=== PATIENT | female | born 1990 | race Caucasian/White ===

== ENCOUNTER 2016-06-25 14:46 | Outpatient (CLI) | payer OTHER ==
[2016-06-25 16:08] LABS: APPEARANCE,URINE CLOUDY; BILIRUBIN,URINE SMALL (NEGATIVE); GLUCOSE, URINE NEGATIVE (NEGATIVE); KETONES,URINE TRACE mg/dL (NEGATIVE); LEUKOCYTE ESTERASE,URINE MODERATE (NEGATIVE); NITRITE,URINE NEGATIVE (NEGATIVE); PROTEIN,URINE 100 mg/dL (NEGATIVE)
--- NOTE | 2016-06-25 16:10 | Non Stress Test Report ---
Non Stress Test Datetime Report Generated by CPN: 06/25/2016 16:09 DEMOGRAPHIC EGA NST: 35.5 INDICATION Indication for Study: Diabetes Mellitus MONITORING Monitor Explained: Monitor Explained; Test Explained; Patient Verbalized Understanding Time on Monitor: 06/25/2016 14:57 Time off Monitor: 06/25/2016 15:25 NST Duration: 28 NST INTERVENTIONS NST Interventions: PO Hydration Physician Notified NST: A. Emmel CNM BABY A: [id number] BABY A Movement : Present Contraction Frequency : 0 FHR Baseline : 135 Accelerations : 15X15 Decelerations : None Variability : Moderate 6-25bpm NST Review: Meets Criteria for Reactive NST NST Review and Verified By : MOSES Becerra Results: Reactive NST REPORT Report Trigger: Send Report
[2016-06-25 16:18] LABS: URINE BARBITURATES SCREEN NEGATIVE; URINE METHADONE SCREEN NEGATIVE; URINE OPIATES LOW NEGATIVE; URINE PHENCYCLIDINE SCREEN NEGATIVE
== END 2016-06-25 17:20 | disposition home or self-care (01) ==
LOC: LC 14:46
PROVIDERS: ATTEND Obstetrics & Gynecology
PROC: 4A1HXCZ Monitoring of Products of Conception, Cardiac Rate, External Approach (ICD-10-PCS; principal; 2016-06-25)
DX: O24.419 Gestational diabetes mellitus in pregnancy, unspecified control (principal); O99.283 Endocrine, nutritional and metabolic diseases complicating pregnancy, third trimester; E86.0 Dehydration; Z3A.35 35 weeks gestation of pregnancy
CPT/HCPCS: 59025; 80307; 81001; 87086; 87088; 87186

== ENCOUNTER 2016-07-26 06:22 | Inpatient (IN) | payer OTHER ==
[2016-07-26] MEDS ORDERED: RINGERS SOLUTION,LACTATED 1,000 ML IV PRN (06:34)
[2016-07-26] MEDS ORDERED: RINGERS SOLUTION,LACTATED 300 ML IV ONE (06:34)
[2016-07-26] MEDS ORDERED: OXYTOCIN/NORMAL SALINE 1,000 ML IV PRN ×2 (06:34→17:14)
[2016-07-26 07:07] LABS: ABSOLUTE BASOPHILS # (AUTO) 0.1 10^3/uL (0.0-0.2); ABSOLUTE EOSINOPHILS # (AUTO) 0.2 10^3/uL (0.0-0.6); ABSOLUTE LYMPHOCYTES (AUTO) 3.7 10^3/uL (0.5-4.7); ABSOLUTE MONOCYTES (AUTO) 1.1 10^3/uL (0.1-1.4); ABSOLUTE NEUT (AUTO) 9.7 10^3/uL (1.7-8.2); BASOPHILS % (AUTO) 0.6 % (0-2); EOSINOPHILS % (AUTO) 1.5 % (0-6); HEMATOCRIT 33.5 % (36.0-47.0); HEMOGLOBIN 11.6 g/dL (12.0-15.5); HGB HCT DIFFERENCE 1.3; MEAN CORPUSCULAR HEMOGLOBIN 31.9 pg (27.0-33.4); MEAN CORPUSCULAR HGB CONC 34.7 g/dL (32.0-36.0); MEAN CORPUSCULAR VOLUME 92 fl (80-97); MONOCYTES % (AUTO) 7.5 % (3-13); RED BLOOD COUNT 3.65 10^6/uL (3.72-5.28); RED CELL DISTRIBUTION WIDTH 13.7 % (11.5-14.0); SEGMENTED NEUTROPHILS % (AUTO) 65.4 % (42-78); WHITE BLOOD COUNT 14.9 10^3/uL (4.0-10.5)
[2016-07-26 07:25] LABS: APPEARANCE,URINE CLOUDY; BILIRUBIN,URINE NEGATIVE (NEGATIVE); GLUCOSE, URINE 50 mg/dL (NEGATIVE); KETONES,URINE TRACE mg/dL (NEGATIVE); LEUKOCYTE ESTERASE,URINE LARGE (NEGATIVE); NITRITE,URINE NEGATIVE (NEGATIVE); PROTEIN,URINE 30 mg/dL (NEGATIVE); URINE SPECIFIC GRAVITY 1.033; UROBILINOGEN,URINE NEGATIVE mg/dL (<2.0)
[2016-07-26 07:28] LABS: URINE BARBITURATES SCREEN NEGATIVE; URINE METHADONE SCREEN NEGATIVE; URINE OPIATES LOW NEGATIVE; URINE PHENCYCLIDINE SCREEN NEGATIVE
[2016-07-26] MEDS ORDERED: OXYTOCIN/NORMAL SALINE 20 UNIT/1,000 ML RTUINJ ONE (07:40)
--- NOTE | 2016-07-26 08:01 | L&D Flow Sheet ---
LD Flowsheet Datetime Report Generated by CPN: 07/26/2016 08:00 Datetime: 07/26/2016 07:48 Vital Signs NBP Sys/Kristin/Mean (mmHg): 110 (QS system process) : 60 (QS system process) : 79 (QS system process) Pulse: 78 (QS system process) Datetime: 07/26/2016 07:45 Medications Pitocin (milliunit): Pitocin Started (milliunits) @ 2 (Angela Broman, RN) Datetime: 07/26/2016 07:31 Vaginal Exam Dilatation (cm): 1.0 (Angela Broman, RN) Effacement (%): 25 (Angela Broman, RN) Station: -2 (Angela Broman, RN) Exam by: Faustino Self RN (Angela Broman, RN) Datetime: 07/26/2016 07:30 Uterine Activity Monitor Mode: External (Angela Broman, RN) Monitor Interventions for UA: Darwin Adjusted (Angela Broman, RN) Frequency (min): irregular (Angela Broman, RN) Quality: Mild (Angela Broman, RN) Duration Criteria: Less than Two 120 Second Contractions (Angela Broman, RN) Resting Tone (Palpate): Relaxed (Angela Broman, RN) Assessment A Monitor Mode: External US (Angela Broman, RN) FHR Baseline Rate : 130 (Angela Broman, RN) Variability: Moderate 6-25 bpm (Angela Broman, RN) Accelerations: 15X15 (Angela Broman, RN) Decelerations: None (Angela Broman, RN) Datetime: 07/26/2016 07:20 Maternal Assessment Level of Consciousness: Fully Conscious (Angela Broman, RN) DTR's/Clonus: DTRs 2+; No Clonus (Angela Broman, RN) Headache: Denies (Angela Broman, RN) Breath Sounds, Right: Clear and Equal (Angela Broman, RN) Nausea/Vomiting: Denies (Angela Broman, RN) RUQ Epigastric Pain: Denies (Angela Broman, RN) Patient Care Comments: Pt up to BR to void (Angela Broman, RN) Datetime: 07/26/2016 07:18 Bedside Blood Glucose: 122 H (QS system process) Datetime: 07/26/2016 07:12 Communication Communication Comments: Report received from Merly RN (Angela Broman, RN) Datetime: 07/26/2016 07:00 Uterine Activity Monitor Mode: External (Crystal Venus, RN) Frequency (min): 4-7 (Crystal Venus, RN) Quality: Mild (Crystal Meghan, RN) Duration (sec): 60-90 (Crystal Venus, RN) Duration Criteria: Less than Two 120 Second Contractions (Crystal Meghan, RN) Resting Tone (Palpate): Relaxed (Crystal Venus, RN) Assessment A Monitor Mode: External US (Crystal Meghan, RN) FHR Baseline Rate : 130 (Crystal Meghan, RN) Variability: Moderate 6-25 bpm (Crystal Venus, RN) Accelerations: 15X15 (Crystal Meghan, RN) Datetime: 07/26/2016 06:56 Procedures: Consents Signed (Carlene Redding, RN) Datetime: 07/26/2016 06:43 Patient Care IV/Blood Work: IV Started; IV Bolus Started; Labs Drawn with IV Start (Carlene Redding RN) Patient Care Comments: 18 gauge placed in R wrist on first attempt. Pt tolerated well. (Carlene Redding, RN) Datetime: 07/26/2016 06:42 Pain Pain Scale: 0 (Carlene Redding, RN) Pain Presence: None/Denies (Carlene Redding, RN) Pain Type: N/A (Carlene Redding, RN) Vaginal Bleeding: None (Carlene Redding, RN) Maternal Assessment Level of Consciousness: Fully Conscious (Carlene Redding, RN) DTR's/Clonus: DTRs 2+; No Clonus (Carlene Redding, RN) Headache: Denies (Carlene Redding, RN) Breath Sounds, Left: Clear and Equal (Carlene Redding, RN) Breath Sounds, Right: Clear and Equal (Carlene Redding, RN) Nausea/Vomiting: Denies (Carlene Redding, RN) RUQ Epigastric Pain: Denies (Carlene Redding, RN) Datetime: 07/26/2016 06:37 Vital Signs NBP Sys/Kristin/Mean (mmHg): 121 (QS system process) : 59 (QS system process) : 85 (QS system process) Pulse: 82 (QS system process)
[2016-07-26] MEDS ORDERED: EPHEDRINE SULFATE INJ 50 MG/1 ML AMPULE ONE (11:08)
[2016-07-26] MEDS ORDERED: BUPIVACAINE HCL 0.25 % INJ/PF (2.5 MG/1 ML) 30 ML VIAL ONE (11:08)
[2016-07-26] MEDS ORDERED: FENTANYL/BUPIVACAINE/NS/PF 200 MCG/100 ML RTUINJ EPI ONE (11:08)
[2016-07-26] MEDS ORDERED: MISOPROSTOL 0.2 MG TABLET ONE (11:09)
--- NOTE | 2016-07-26 15:56 | L&D Progress Notes ---
PROGRESS NOTES Datetime Report Generated by CPN: 07/26/2016 15:56 PROGRESS NOTE Impression: Normal Progression of Labor Procedures: Sterile Vag Exam Plan: Continue Present Management Informed Consent Obtained: Vaginal Delivery Vital Signs : Reviewed; Within Normal Limits Comment: pt feeling more pressure continue present mgmt anticipate VAGINAL EXAM Dilatation: 7 Dilatation: 1 Effacement: 80 Station: 0 Contractions: 2-3 Contractions: irregular MEMBRANES Membranes: Ruptured Membranes: Intact Amniotic Fluid Color: Clear FETUS A FHR - Baseline: 130 Variability: Moderate 6-25bpm Accelerations: 15X15 Decelerations: Early FHR Category: Category II Estimated Weight (gm): 3400 Presentation: Vertex SIGNATURE SIGNATURE: [id number] SIGNATURE: [id number] Assignment: Ramya Lott MD Signature: with User ID: [email or web address] : with User ID: [email or web address]
[2016-07-26] MEDS ORDERED: MEASLES,MUMPS&RUBELLA VACC/PF 0.5 ML VIAL SUBCUT PRN (17:14)
[2016-07-26] MEDS ORDERED: BENZOCAINE/MENTHOL AEROSOL SPRAY 56 ML TOP PRN (17:14)
[2016-07-26] MEDS ORDERED: PROMETHAZINE HCL 25 MG TABLET PO PRN (17:14)
[2016-07-26] MEDS ORDERED: ACETAMINOPHEN 650 MG SUPP.RECT PR PRN (17:14)
[2016-07-26] MEDS ORDERED: DIBUCAINE 1% OINTMENT 28 GM TP PRN (17:14)
[2016-07-26] MEDS ORDERED: PROMETHAZINE HCL INJ 25 MG/1 ML VIAL IV PRN (17:14)
[2016-07-26] MEDS ORDERED: ACETAMINOPHEN WITH CODEINE #3 TABLET PO PRN ×2 (17:14)
[2016-07-26] MEDS ORDERED: DIPH/PERTUSS(ACELL)/TETANUS VAC/PF 0.5 ML SYR (>=10YO) IM PRN (17:14)
[2016-07-26] MEDS ORDERED: NA PHOS,M-B/NA PHOS,DI-BA (ADULT) 133 ML ENEMA PR PRN (17:14)
[2016-07-26] MEDS ORDERED: PSEUDOEPHEDRINE HCL 30 MG TABLET PO PRN (17:14)
[2016-07-26] MEDS ORDERED: DIPHENHYDRAMINE HCL 25 MG CAPSULE PO PRN (17:14)
[2016-07-26] MEDS ORDERED: PROMETHAZINE HCL 25 MG SUPP.RECT PR PRN (17:14)
[2016-07-26] MEDS ORDERED: MAGNESIUM HYDROXIDE SUSP 30 ML UDCUP PO PRN (17:14)
[2016-07-26] MEDS ORDERED: ZOLPIDEM TARTRATE 5 MG TABLET PO PRN (17:14)
[2016-07-26] MEDS ORDERED: GLYCERIN/WITCH HAZEL LEAF 1 EACH MED..PAD TP PRN (17:14)
--- NOTE | 2016-07-26 18:02 | L&D General Admission ---
General Admit Datetime Report Generated by CPN: 07/26/2016 18:00 INFORMATION Patient Age: 25 (06/13/2016 09:57:QS system process) EDC: 07/25/2016 00:00 (06/25/2016 14:55:Belinda Reis RN) : 2 (06/25/2016 14:55:Belinda Reis RN) Para: 1 (06/25/2016 14:55:Belinda Reis RN) Term: 1 (06/25/2016 14:55:Carlene Redding RN) : 0 (06/25/2016 14:55:Carlene Redding RN) Spontaneous Abortions: 0 (06/25/2016 14:55:Carlene Redding RN) Induced Abortions: 0 (06/25/2016 14:55:Carlene Redding RN) Livin (06/25/2016 14:55:Carlene Redding RN) Cesareans: 0 (06/25/2016 14:55:Carlene Redding RN) VBACs: 0 (06/25/2016 14:55:Carlene Redding RN) Ectopic: 0 (06/25/2016 14:55:Carlene Redding RN) Multiple Births: 0 (06/25/2016 14:55:Carlene Redding RN) Baby, Number in Womb: 1 (06/25/2016 14:55:Carlene Redding RN) CARE Primary Active Directory Specialist: [facility] (06/25/2016 14:55:Belinda Reis RN) Adequate Care: Yes (06/25/2016 14:55:Carlene Redding RN) Height (in): 63 (07/26/2016 07:55:QS system process) ALLERGIES Medication Allergy: No (06/25/2016 14:55:Carlene Redding RN) Medication Allergies: No Known Allergies (07/26/2016) (07/26/2016 06:32:QS system process) Latex Allergy: No Latex Allergies (06/25/2016 14:55:Carlene Redding RN) Food Allergies: none (06/25/2016 14:55:Carlene Rdeding RN) Environmental Allergies: none (06/25/2016 14:55:Carlene Redding RN) COMMUNICATION Primary Language: Jamaican (06/25/2016 14:55:Belinda Reis RN) Medical Tx Preferred Language: Jamaican (06/25/2016 14:55:Carlene Redding RN) Communication Barrier(s): None (06/25/2016 14:55:Carlene Redding RN) DEMOGRAPHICS Address: [address] [place] [id number] (06/13/2016 09:57:QS system process) Zipcode: [address] (06/13/2016 09:57:QS system process) Home (06/13/2016 09:57:QS system process) SSN: [id number] (06/13/2016 09:57:QS system process) Next of Kin Name: MIGDALIA ESPINOSA (06/13/2016 09:57:QS system process) Next of Kin (06/13/2016 09:57:QS system process) Next of Kin Relationship: SPO (06/13/2016 09:57:QS system process) Date of : 1990 (06/13/2016 09:57:QS system process) Marital Status: (06/13/2016 09:57:QS system process) Sex: Female (06/13/2016 09:57:QS system process) Race: (06/13/2016 09:57:QS system process) Ethnicity: Non- or (06/13/2016 09:57:QS system process) Druze: None (06/13/2016 09:57:QS system process) DRUG AND ALCOHOL USE Alcohol: No (06/25/2016 14:55:Carlene Redding RN) Cigarettes: Never Smoker. [id number] (06/25/2016 14:55:Carlene Vahid RN) Marijuana: No (06/25/2016 14:55:Carlene Redding RN) Cocaine: No (06/25/2016 14:55:Carlene Vahdi RN) Other Illicit Drugs: No (06/25/2016 14:55:Carlene Redding, RN) VACCINE HISTORY Influenza Vaccine: No (06/25/2016 14:55:Carlene Redding RN) Pneumococcal Vaccine: No (06/25/2016 14:55:Carlene Redding RN) Tetanus Vaccine: No (06/25/2016 14:55:Carlene Redding RN) Tdap Vaccine: No (06/25/2016 14:55:Carlene Redding RN) Hepatitis B Vaccine: No (06/25/2016 14:55:Carlene Redding RN) Administrator Health Care Facility: [facility] (06/25/2016 14:55:Carlene Redding RN) Feeding Preference: Breast (06/25/2016 14:55:Carlene Redding RN) Benefit of Breast Feed Discussed: Yes (06/25/2016 14:55:Carlene Redding RN) Circumcision: N/A (06/25/2016 14:55:Carlene Redding RN) Classes Attended: No (06/25/2016 14:55:Carlene Redding RN) Tubal Ligation: Yes (06/25/2016 14:55:Carlene Redding RN) Tubal Authorization Signed: No (06/25/2016 14:55:Carlene Redding RN) Consent: N/A (06/25/2016 14:55:Carlene Redding RN) Consent Signed: N/A (06/25/2016 14:55:Carlene Redding RN) Pain Management Plans: Epidural (06/25/2016 14:55:Carlene Redding RN) Plans for Labor and Delivery: None (06/25/2016 14:55:Carlene Redding RN) Support Person: Migdalia (06/25/2016 14:55:Carlene Redding RN) Support Person Relationship: (06/25/2016 14:55:Carlene Redding RN) Cultural/Spritual Practice: No (06/25/2016 14:55:Carlene Redding RN) Spir/Cult Dietary Needs: No (06/25/2016 14:55:Carlene Redding RN) LIVING SITUATION/DISCHARGE PLAN Living Arrangements: House (06/25/2016 14:55:Carlene Redding RN) Adequate Access to:: Electric; Heat; Refrigeration; Plumbing/Running water; Phone; Transportation (06/25/2016 14:55:Carlene Redding RN) WIC Program: No (06/25/2016 14:55:Carlene Redding RN) Discharge Parer Person: Migdalia (06/25/2016 14:55:Carlene Redding RN) Person to Help after Discharge: Migdalia (06/25/2016 14:55:Carlene Redding RN) Currently Using Commun Resources: No (06/25/2016 14:55:Carlene Redding RN) Outside Agency/Plumbing Designer: No (06/25/2016 14:55:Carlene Redding RN) Car Seat for Discharge: Yes (06/25/2016 14:55:Carlene Redding RN) Adoption Requested: No (06/25/2016 14:55:Carlene Redding RN) Pt Contact w/infant Post : N/A (06/25/2016 14:55:Carlene Redding RN) LABS Blood Type: A Negative (06/25/2016 14:55:Carlene Redding RN) Antibody Screen: neg (06/25/2016 14:55:Carlene Redding RN) Rho(G) this : Yes (06/25/2016 14:55:Angela Self RN) Date Rho(G) Given: 05/03/16 (06/25/2016 14:55:Angela Self RN) Hemoglobin: 11.6 L (07/26/2016 06:44:QS system process) Hematocrit: 33.5 L (07/26/2016 06:44:QS system process) MCV: 92 (07/26/2016 06:44:QS system process) Group Beta Strep: negative (06/25/2016 14:55:Carlene Redding RN) Gonorrhea: Negative (06/25/2016 14:55:Carlene Redding RN) Chlamydia: Negative (06/25/2016 14:55:Carlene Redding RN) RPR/VDRL: Nonreactive (06/25/2016 14:55:Carlene Redding RN) HIV Exposure Test: Negative (06/25/2016 14:55:Carlene Redding RN) HIV Results: negative (06/25/2016 14:55:Carlene Redding RN) Rubella: Immune (06/25/2016 14:55:Carlene Redding RN) OB/PREVIOUS HISTORY Previous Procedures: Ultrasound; NST (06/25/2016 14:55:Carlene Redding RN) Current Procedures: Ultrasound; NST (06/25/2016 14:55:Carlene Redding RN) History of Previous : No (06/25/2016 14:55:Angela Self RN) History of Gestational Diabetes: Yes (06/25/2016 14:55:Carlene Redding RN) History of PIH: No (06/25/2016 14:55:Angela Self RN) History of Incompetent Cervix: No (06/25/2016 14:55:Angela Self RN) History of Placenta Previa/Abrup: No (06/25/2016 14:55:Angela Self RN) History of Macrosomia: No (06/25/2016 14:55:Angela Self RN) History of IUGR: No (06/25/2016 14:55:Angela Self RN) History of Hemorrhage: No (06/25/2016 14:55:Angela Self RN) History of Loss/Stillborn: No (06/25/2016 14:55:Angela Self RN) History of : No (06/25/2016 14:55:Angela Self RN) History of D (Rh) Sensitization: No (06/25/2016 14:55:Angela Self RN) History Recurrent Loss/Stillborn: No (06/25/2016 14:55:Angela Self RN) History Depression/PP Depression: No (06/25/2016 14:55:Angela Self RN) History of Uterine Anomaly/ABILIO: No (06/25/2016 14:55:Angela Self RN) History of Infertility: No (06/25/2016 14:55:Angela Self RN) History of ART Treatment: No (06/25/2016 14:55:Angela Self RN) History of ABILIO: No (06/25/2016 14:55:Angela Self RN) Comments Obstetrical History: G1: 2014 female 6 lbs 15 ounces G2: Current (06/25/2016 14:55:Carlene Redding RN) MEDICAL HISTORY Med Hx Diabetes: Yes (06/25/2016 14:55:Carlene Redding RN) Diabetes Type: Gestational Diabetes (06/25/2016 14:55:Carlene Redding RN) Med Hx Hypertension: No (06/25/2016 14:55:Angela Self RN) Med Hx Heart Disease: No (06/25/2016 14:55:Angela Self RN) Med Hx Autoimmune Disorder: No (06/25/2016 14:55:Angela Self RN) Med Hx Kidney Disease/UTI: No (06/25/2016 14:55:Angela Self RN) Med Hx Neurologic/Epilepsy: No (06/25/2016 14:55:Angela Self RN) Med Hx Psychiatric Disorders: No (06/25/2016 14:55:Angela Self RN) Med Hx Hepatitis/Liver Disease: No (06/25/2016 14:55:Angela Self RN) Med Hx Varicosities/Phlebitis: No (06/25/2016 14:55:Angela Self RN) Med Hx Thyroid Dysfunction: No (06/25/2016 14:55:Angela Self RN) Med Hx Trauma/Violence: No (06/25/2016 14:55:Angela Self RN) Med Hx Blood Transfusion: No (06/25/2016 14:55:Angela Self RN) Med Hx Pulmonary (Asthma,TB): No (06/25/2016 14:55:Angela Self RN) Med Hx Breast: No (06/25/2016 14:55:Angela Self RN) Med Hx SWEET DOUGH MIXER Surgery: No (06/25/2016 14:55:Angela Self RN) Med Hx Hospitalization/Surgery: Yes (06/25/2016 14:55:Carlene Redding RN) Med Hx Anesthetic Complications: No (06/25/2016 14:55:Angela Self RN) Med Hx Abnormal Pap Smear: No (06/25/2016 14:55:Angela Self RN) Other Medical Diseases: No (06/25/2016 14:55:Angela Self RN) Med Hx Significant Family Hx: No (06/25/2016 14:55:Angela Self RN) Details of Med/Surg Hx: childbirth, wisdom teeth (06/25/2016 14:55:Carlene Redding RN) INFECTIOUS HISTORY Inf Hx Gonorrhea: No (06/25/2016 14:55:Angela Self RN) Inf Hx Chlamydia: No (06/25/2016 14:55:Angela Self RN) Inf Hx Syphilis: No (06/25/2016 14:55:Angela Self RN) Inf Hx HIV/AIDS: No (06/25/2016 14:55:Angela Self RN) Inf Hx Human Papilloma Virus: No (06/25/2016 14:55:Angela Self RN) Inf Hx Pt/Partner Genital Herpes: No (06/25/2016 14:55:Angela Self RN) Inf Hx Tuberculosis/Exposure: No (06/25/2016 14:55:Angela Self RN) Inf Hx Hepatitis B,C: No (06/25/2016 14:55:Angela Self RN) Inf Hx Rash or Viral Illness: No (06/25/2016 14:55:Angela Self RN) GENETIC HISTORY Gen Hx Age >=35 at NHAN: No (06/25/2016 14:55:Angela Self RN) Gen Hx Thalassemia: No (06/25/2016 14:55:Angela Self RN) Gen Hx Congenital Heart Defect: No (06/25/2016 14:55:Angela Self RN) Gen Hx Neural Tube Defect: No (06/25/2016 14:55:Angela Self RN) Gen Hx Down's Syndrome: No (06/25/2016 14:55:Angela Self RN) Gen Hx Vern-Sachs: No (06/25/2016 14:55:Angela Self RN) Gen Hx Prabhjot: No (06/25/2016 14:55:Angela Self RN) Gen Hx Familial Dysautonomia: No (06/25/2016 14:55:Angela Self RN) Gen Hx Sickle Cell Disease/Trait: No (06/25/2016 14:55:Angela Self RN) Gen Hx Hemophilia/Blood Disorder: No (06/25/2016 14:55:Angela Self RN) Gen Hx Muscular Dystrophy: No (06/25/2016 14:55:Angela Self RN) Gen Hx Cystic Fibrosis: No (06/25/2016 14:55:Angela Self RN) Gen Hx Huntingtons Chorea: No (06/25/2016 14:55:Angela Self RN) Gen Hx Mental Retardation/Autism: No (06/25/2016 14:55:Angela Self RN) Gen Hx Tested for Fragile X: No (06/25/2016 14:55:Angela Self RN) Gen Hx Other Inher/Chromosomal: No (06/25/2016 14:55:Angela Self RN) Gen Hx Maternal Metabolic DO: No (06/25/2016 14:55:Angela Self RN) Gen Hx Pt Father or FOB Defect: No (06/25/2016 14:55:Angela Self RN) Gen Hx Other Genetic History: No (06/25/2016 14:55:Angela Self RN) Gen Hx Drugs/Meds since LMP: Yes (06/25/2016 14:55:Carlene Redding RN) Gen Hx Medications: PNV, Vit D (06/25/2016 14:55:Carlene Redding RN)
--- NOTE | 2016-07-26 18:02 | L&D Current Admission ---
Current Admit Datetime Report Generated by CPN: 07/26/2016 18:00 ADMISSION INFORMATION Current Admit Date/Time: 07/26/2016 06:49 (07/26/2016 06:49:Carlene Redding RN) Reason for Admission: Induction of Labor (07/26/2016 06:49:Cralene Redding RN) Chief Complaint: Scheduled Induction of Labor (07/26/2016 06:42:Carlene Redding RN) EGA per Dates: 40.1 (07/26/2016 06:49:QS system process) Method of Arrival: Ambulatory (07/26/2016 06:49:Carlene Redding RN) Reason for Induction: Maternal Diabetes (07/26/2016 06:49:Carlene Redding RN) Records Available: Yes (07/26/2016 06:49:Carlene Redding RN) General Admission Information: Reviewed (07/26/2016 06:49:Carlene Redding RN) BELONGINGS/ADVANCED DIRECTIVES Other Belongings: see belongings consent form (07/26/2016 06:49:Carlene Redding RN) Disposition of Belongings: Kept with Patient (07/26/2016 06:49:Carlene Redding RN) Advance Direct for Healthcare: No, and Wants No Information (07/26/2016 06:49:Carlene Redding RN) Durable Power of Insulator Technician: No (07/26/2016 06:49:Carlene Redding RN) Living Will: No (07/26/2016 06:49:Carlene Redding RN) Organ Donor: Yes (07/26/2016 06:49:Carlene Redding RN) Pt Rights Information Given: Yes (07/26/2016 06:49:Carlene Redding RN) Pt Understands Pt Rights: Yes (07/26/2016 06:49:Carlene Redding RN) LEARNING ASSESSMENT Knowledge Level: Understands L_D Process; Understands Care Activities; Understands Diagnosis (07/26/2016 06:49:Carlene Redding RN) Barriers to Learning: None (07/26/2016 06:49:Carlene Redding RN) Learning Readiness: Motivated (07/26/2016 06:49:Carlene Redding RN) Learns Best By: 1 to 1 Instruction (07/26/2016 06:49:Carlene Redding RN) Learning Needs: Labor and Delivery Process; Pain Management; Symptoms to Report; Treatment Plan; Medication; Diagnosis; Nutrition; Equipment; Infant Care; Community Resources (07/26/2016 06:49:Carlene Redding RN) DOMESTIC VIOLANCE SCREENING Dom Viol Threatened/Hurt: No (07/26/2016 06:49:Carlene Redding RN) Hx of Abuse/Neglect past 2yrs: No (07/26/2016 06:49:Carlene Redding RN) Feel Unsafe Going Home: No (07/26/2016 06:49:Carlene Redding RN) Addt'l Observ Indicating Abuse: No (07/26/2016 06:49:Carlene Redding RN) Reason Unable to Complete Screen: N/A, Screen Completed (07/26/2016 06:49:Carlene Redding RN) Considered Personal Harm/Suicide: No (07/26/2016 06:49:Carlene Redding RN) NUTRITIONAL/FUNCTIONAL SCREENING Problem with Appetite >5 Days: No (07/26/2016 06:49:Carlene Redding RN) Chew/Swallow Difficulties: No (07/26/2016 06:49:Carlene Redding RN) Inappropriate Wt Gain/Loss: No (07/26/2016 06:49:Carlene Redding RN) Presence Skin Breakdown/Ulcer: No (07/26/2016 06:49:Carlene Redding RN) Special Diet: No (07/26/2016 06:49:Carlene Redding RN) Pt Requests Service Dismantler Visit: No (07/26/2016 06:49:Carlene Redding RN) Hx of Any of the Following?: Diabetes (07/26/2016 06:49:Carlene Redding RN) New Diagnosis of: Gest Diabetes (07/26/2016 06:49:Carlene Redding RN) Requires Assist w/Ambulation: No (07/26/2016 06:49:Carlene Redding RN) Uses Assist Device to Ambulate: No (07/26/2016 06:49:Carlene Redding RN) Pt Requires Help w/ADL's: No (07/26/2016 06:49:Carlene Redding RN)
--- NOTE | 2016-07-26 19:30 | Delivery Summary ---
Del Sum A-C Datetime Report Generated by CPN: 07/26/2016 19:30 DELIVERY PERSONNEL DELIVERY PERSONNEL: [id number] Delivery Doctor:: Belgica Quintanilla CNM Labor and Delivery Nurse:: Angela Self, sluice tender Nurse:: Renea Ruiz, MOSES Technical Training Instructor/ETCHER ENAMELING: Judith Castaneda, TRINA Technical Training Instructor/ETCHER ENAMELING: Burt Santana, Additional Personnel: : Carly Mak, RNC MATERNAL INFORMATION Delivery Anesthesia: Epidural Medications After Delivery: Pitocin Bolus-Please Comment Meds After Delivery Comment: Pitocin 20 un/1000L bolus Estimated Blood Loss (ml): 200 Maternal Complications: None Provider Comments: of viable female over intact perineum, head shoulders and body delivered without difficulty, with spontaneous cry and respirations, to maternal abdomen, cord clamped X2, cut free after 2 minute delay. spontaneous delivery of placenta via case mechanism, appears intact 3 VC. vagina and perineum inspected no lacerations noted. hemostasis acheived with external fundal massage and IV pitocin, mother and in stable condition, routine pp care. LABOR SUMMARY EDC: 07/25/2016 00:00 No. Babies in Womb: 1 Attempted: No Labor Anesthesia: Epidural LABOR INFORMATION Reason for Induction: Maternal Diabetes Onset of Labor: 07/26/2016 09:00 Complete Dilatation: 07/26/2016 16:40 Oxytocin: Induction Group B Beta Strep: negative Steroids Given: None Reason Steroids Not Administered: Not Applicable MEMBRANES Membranes Rupture Method: Artificial Rupture of Membranes: 07/26/2016 10:52 Length of Rupture (hr): 6.30 Amniotic Fluid Color: Clear Amniotic Fluid Amount: Moderate Amniotic Fluid Odor: Normal STAGES OF LABOR Stage 1 hr: 7 Stage 1 min: 40 Stage 2 hr: 0 Stage 2 min: 30 Stage 3 hr: 0 Stage 3 min: 4 Total Time in Labor hr: 8 Total Time in Labor min: 14 VAGINAL DELIVERY Episiotomy: None Laceration Extension: N/A Laceration Type: None Laceration Repair: Not Applicable Sponge Count Correct: N/A Sharps Count Correct: N/A CSECTION DELIVERY Primary Indication: N/A Secondary Indication: N/A CSection Incision: N/A BABY A INFORMATION Infant Delivery Date/Time: 07/26/2016 17:10 Method of Delivery: Vaginal Born in Route : No : N/A Forceps: N/A Vacuum Extraction: N/A Shoulder Dystocia : No PRESENTATION/POSITION BABY A Presentation: Cephalic Cephalic Presentation: Vertex Vertex Position: Right Occipital Anterior Breech Presentation: N/A PLACENTA INFORMATION BABY A Placenta Delivery Time : 07/26/2016 17:14 Placenta Method of Delivery: Spontaneous Placenta Status: Delivered SCORES BABY A Heart Rate 1 min: >100 bpm Resp Effort 1 min: Good Cry Reflex Irritability 1 min: Cough or Sneeze or Pulls Away Muscle Tone 1 min: Active Motion Color 1 min: Body Timken, Extremities Blue Resuscitation Effort 1 min: N/A SCORE 1 MIN: 9 Heart Rate 5 min: >100 bpm Resp Effort 5 min: Good Cry Reflex Irritability 5 min: Cough or Sneeze or Pulls Away Muscle Tone 5 min: Active Motion Color 5 min: Completely Timken Resuscitation Effort 5 min: N/A SCORE 5 MIN: 10 INFANT INFORMATION BABY A Gestational Age at Delivery: 40.1 Gestational Status: Full Term- 39- 40.6 Weeks Infant Outcome : Liveborn Condition : Stable Infant Sex: Female IDENTIFICATION BABY A Verification Date/Time: 07/26/2016 17:45 ID Band Number: [id number] Mother's Name Verified: Yes Infant RN Verifying Infant: K Joseph RNC/M Broman RN WEIGHT/LENGTH BABY A Infant Birthweight (gm): 3285 Infant Weight (lb): 7 Infant Weight (oz): 4 Infant Length (in): 20.50 Length (cm): 52.07 CORD INFORMATION BABY A No. Cord Vessels: 3 Nuchal Cord : N/A Cord Blood Taken: Yes-For Eval (Mom's Blood Type - or O+) Infant Suction: None ASSESSMENT BABY A Complications: None Physical Findings at Delivery: Within Normal Limits Infant Respirations: Appears Normal Skin to Skin: Yes Skin to Skin Time (min): 60 Feeder Catcher/ALS Called : No Care By: Ron Mak Transferred To: Remains with Mother SIGNATURES Assignment: Ramya Lott MD Signature: with User ID: Baldemar : with User ID: [email or web address]
--- NOTE | 2016-07-26 20:02 | L&D Flow Sheet ---
LD Flowsheet Datetime Report Generated by CPN: 07/26/2016 20:00 Datetime: 07/26/2016 19:17 NBP Sys/Kristin/Mean (mmHg): 129 (QS system process) : 60 (QS system process) : 86 (QS system process) Pulse: 80 (QS system process) Pain Scale: 0 (Shanti Vandana, RN) Datetime: 07/26/2016 19:02 NBP Sys/Kristin/Mean (mmHg): 97 (QS system process) : 52 (QS system process) : 72 (QS system process) Pulse: 83 (QS system process) Datetime: 07/26/2016 19:01 Stage of : Recovery (Angela Broman, RN) Pain Scale: 0 (Angela Broman, RN) Pain Presence: None/Denies (Angela Broman, RN) Datetime: 07/26/2016 18:46 Stage of : Recovery (Angela Broman, RN) NBP Sys/Kristin/Mean (mmHg): 108 (QS system process) : 58 (QS system process) : 80 (QS system process) Pulse: 77 (QS system process) Pain Scale: 0 (Angela Broman, RN) Pain Presence: None/Denies (Angela Broman, RN) Datetime: 07/26/2016 18:31 Stage of : Recovery (Angela Broman, RN) NBP Sys/Kristin/Mean (mmHg): 109 (QS system process) : 55 (QS system process) : 73 (QS system process) Pulse: 88 (QS system process) Pain Scale: 1 (Angela Broman, RN) Pain Presence: Intermittent (Angela Broman, RN) Pain Type: Cramping (Angela Broman, RN) Pain Location: Abdomen (Angela Broman, RN) Pain Relief Measures: Comfort Measures (Angela Broman, RN) Datetime: 07/26/2016 18:16 Stage of : Recovery (Angela Broman, RN) NBP Sys/Kristin/Mean (mmHg): 107 (QS system process) : 58 (QS system process) : 79 (QS system process) Pulse: 83 (QS system process) Respirations: 18 (Angela Broman, RN) Pain Scale: 1 (Angela Broman, RN) Pain Presence: Intermittent (Angela Broman, RN) Pain Type: N/A; Cramping (Angela Broman, RN) Pain Location: Abdomen (Angela Broman, RN) Pain Relief Measures: Comfort Measures (Angela Broman, RN) Datetime: 07/26/2016 18:01 Stage of : Recovery (Renea Joseph, RNC) NBP Sys/Kristin/Mean (mmHg): 101 (QS system process) : 51 (QS system process) : 73 (QS system process) Pulse: 81 (QS system process) Respirations: 16 (Renea Joseph, RNC) Pain Type: Cramping (Renea Joseph, RNC) Datetime: 07/26/2016 17:46 Stage of : Recovery (Renea Joseph, RNC) NBP Sys/Kristin/Mean (mmHg): 99 (QS system process) : 54 (QS system process) : 74 (QS system process) Pulse: 74 (QS system process) Respirations: 17 (Renea Joseph, RNC) Pain Scale: 1 (Renea Ruiz, RNC) Pain Presence: Intermittent (Renea Joseph, RNC) Pain Type: Cramping (Renea Joseph, RNC) Pain Location: Abdomen (Renea Joseph, RNC) Pain Relief Measures: Comfort Measures (Renea Joseph, RNC) Datetime: 07/26/2016 17:31 NBP Sys/Kristin/Mean (mmHg): 113 (QS system process) : 54 (QS system process) : 78 (QS system process) Pulse: 90 (QS system process) Datetime: 07/26/2016 17:30 Stage of : Recovery (Angela Broman, RN) Respirations: 16 (Angela Broman, RN) Pain Scale: 1 (Angela Broman, RN) Pain Presence: Intermittent (Angela Broman, RN) Pain Type: Cramping (Angela Broman, RN) Pain Location: Abdomen (Angela Broman, RN) Pain Relief Measures: Comfort Measures (Angela Broman, RN) Datetime: 07/26/2016 17:17 NBP Sys/Kristin/Mean (mmHg): 126 (QS system process) : 60 (QS system process) : 87 (QS system process) Pulse: 82 (QS system process) Datetime: 07/26/2016 17:15 Stage of : Recovery (Angela Broman, RN) Respirations: 18 (Angela Broman, RN) Temperature (F): 97.9 (Angela Broman, RN) Temperature (C): 36.6 (QS system process) Temperature Route: Axillary (Angela Broman, RN) Pain Scale: 2 (Angela Broman, RN) Pain Presence: None/Denies (Angela Broman, RN) Pain Type: Cramping (Angela Broman, RN) Pain Location: Abdomen (Angela Broman, RN) Pain Relief Measures: Comfort Measures (Angela Broman, RN) Datetime: 07/26/2016 17:11 Stage of : Recovery (Renea Ruiz, [facility]) Datetime: 07/26/2016 17:05 Contraction Comments: IUPC off at this time by H. Dwight CNM (Angela Broman, RN) Datetime: 07/26/2016 17:02 NBP Sys/Kristin/Mean (mmHg): 139 (QS system process) : 60 (QS system process) : 87 (QS system process) Pulse: 96 (QS system process) LaborFlag: Antepartum (QS system process) Datetime: 07/26/2016 17:00 Monitor Mode: Internal (BETTY Vera) Monitor Mode: Internal Scalp Electrode (Renea Joseph, RNC) Comments: RN and CNM at , continuously assessing FHR. (BETTY Vera) Patient Care Comments: o2 aplied at 10L NRB (Angela Self RN) Communication: RN at Bedside; Provider at Bedside (BETTY Vera) Datetime: 07/26/2016 16:48 Pushing Position: Pushing with Contractions (Angela Broman, RN) Pushing Progress: Descent with Pushing (Angela Broman, RN) Datetime: 07/26/2016 16:45 Preparation for Delivery: Setup for Delivery (Angela Broman, RN) Datetime: 07/26/2016 16:44 Patient Care Comments: Rn and H. Dwight CNM at bedside continuously assessing FHRs while pt. pushing with contractions (Angela Broman, RN) Datetime: 07/26/2016 16:43 I/O Interventions: Caicedo Discontinued (Angela Broman, RN) Datetime: 07/26/2016 16:40 Dilatation (cm): 10.0 (Angela Broman, RN) Effacement (%): 100 (Angela Broman, RN) Station: 2 (Angela Broman, RN) Exam by: H. Dwight CNM (Angela Broman, RN) Datetime: 07/26/2016 16:31 NBP Sys/Kristin/Mean (mmHg): 103 (QS system process) : 58 (QS system process) : 78 (QS system process) Pulse: 81 (QS system process) LaborFlag: Antepartum (QS system process) Datetime: 07/26/2016 16:18 NBP Sys/Kristin/Mean (mmHg): 131 (QS system process) : 56 (QS system process) : 81 (QS system process) Pulse: 83 (QS system process) LaborFlag: Antepartum (QS system process) Datetime: 07/26/2016 16:15 Monitor Mode: Internal (Angela Broman, RN) Frequency (min): 2-3 (Angela Broman, RN) Quality: Moderate (Angela Broman, RN) Duration (sec): 60-90 (Angela Broman, RN) Duration Criteria: Less than Two 120 Second Contractions (Angela Broman, RN) Resting Tone (Palpate): Relaxed (Angela Broman, RN) Monitor Mode: Internal Scalp Electrode (Angela Broman, RN) FHR Baseline Rate : 140 (Angela Broman, RN) Variability: Moderate 6-25 bpm (Angela Broman, RN) Accelerations: 15X15 (Angela Broman, RN) Decelerations: Variable (Angela Broman, RN) Pitocin (milliunit): Pitocin Remains (milliunits) @ 18 (Angela Broman, RN) Datetime: 07/26/2016 16:03 NBP Sys/Kristin/Mean (mmHg): 105 (QS system process) : 69 (QS system process) : 82 (QS system process) Pulse: 69 (QS system process) LaborFlag: Antepartum (QS system process) Datetime: 07/26/2016 16:00 Monitor Mode: Internal (Angela Broman, RN) Frequency (min): 2-4 (Angela Broman, RN) Quality: Moderate (Angela Broman, RN) Duration (sec): 60-90 (Angela Broman, RN) Duration Criteria: Less than Two 120 Second Contractions (Angela Broman, RN) Resting Tone (Palpate): Relaxed (Angela Broman, RN) Monitor Mode: Internal Scalp Electrode (Angela Broman, RN) FHR Baseline Rate : 130 (Angela Broman, RN) Variability: Moderate 6-25 bpm (Angela Broman, RN) Accelerations: 15X15 (Angeal Broman, RN) Decelerations: None (Angela Broman, RN) Pitocin (milliunit): Pitocin Remains (milliunits) @ 18 (Angela Broman, RN) Datetime: 07/26/2016 15:52 Patient Position/Activity: Left Lateral; Peanut Ball (Angela Broman, RN) Datetime: 07/26/2016 15:50 Monitor Mode: Internal (Angela Broman, RN) Resting Tone IUP (mmHg): 15 (Angela Broman, RN) Intensity IUP (mmHg): 55 (Angela Broman, RN) Contraction Comments: MVU = 285 (Angela Broman, RN) Datetime: 07/26/2016 15:49 Dilatation (cm): 6.0 (Angela Broman, RN) Effacement (%): 90 (Angela Broman, RN) Exam by: H. Dwight CNM (Angela Broman, RN) Datetime: 07/26/2016 15:47 NBP Sys/Kristin/Mean (mmHg): 120 (QS system process) : 58 (QS system process) : 84 (QS system process) Pulse: 68 (QS system process) LaborFlag: Antepartum (QS system process) Datetime: 07/26/2016 15:45 Monitor Mode: Internal (Angela Broman, RN) Frequency (min): 2-3 (Angela Broman, RN) Quality: Moderate (Angela Broman, RN) Duration (sec): 60-90 (Angela Broman, RN) Duration Criteria: Less than Two 120 Second Contractions (Angela Broman, RN) Resting Tone (Palpate): Relaxed (Angela Broman, RN) Resting Tone IUP (mmHg): 20 (Angela Broman, RN) Monitor Mode: Internal Scalp Electrode (Angela Broman, RN) FHR Baseline Rate : 135 (Angela Broman, RN) Variability: Moderate 6-25 bpm (Angela Broman, RN) Accelerations: None (Angela Broman, RN) Decelerations: Early (Angela Broman, RN) Pitocin (milliunit): Pitocin Remains (milliunits) @ 18 (Angela Broman, RN) Datetime: 07/26/2016 15:33 NBP Sys/Kristin/Mean (mmHg): 119 (QS system process) : 56 (QS system process) : 81 (QS system process) Pulse: 71 (QS system process) LaborFlag: Antepartum (QS system process) Datetime: 07/26/2016 15:30 Monitor Mode: Internal (Angela Broman, RN) Frequency (min): 2-3 (Angela Broman, RN) Quality: Moderate (Angela Broman, RN) Duration (sec): 60-90 (Angela Broman, RN) Duration Criteria: Less than Two 120 Second Contractions (Angela Broman, RN) Resting Tone (Palpate): Relaxed (Angela Broman, RN) Resting Tone IUP (mmHg): 15 (Angela Broman, RN) Monitor Mode: Internal Scalp Electrode (Angela Broman, RN) FHR Baseline Rate : 140 (Angela Broman, RN) Variability: Moderate 6-25 bpm (Angela Broman, RN) Accelerations: 15X15 (Angela Broman, RN) Decelerations: Early (Angela Broman, RN) Pitocin (milliunit): Pitocin Remains (milliunits) @ 18 (Angela Broman, RN) Datetime: 07/26/2016 15:29 Patient Position/Activity: Left Lateral (Angela Broman, RN) Datetime: 07/26/2016 15:19 NBP Sys/Kristin/Mean (mmHg): 104 (QS system process) : 54 (QS system process) : 74 (QS system process) Pulse: 80 (QS system process) Respirations: 16 (Angela Broman, RN) LaborFlag: Antepartum (QS system process) Datetime: 07/26/2016 15:15 Monitor Mode: Internal (Angela Broman, RN) Frequency (min): 2-3 (Angela Broman, RN) Quality: Moderate (Angela Broman, RN) Duration (sec): 60-90 (Angela Broman, RN) Duration Criteria: Less than Two 120 Second Contractions (Angela Broman, RN) Resting Tone (Palpate): Relaxed (Angela Broman, RN) Resting Tone IUP (mmHg): 20 (Angela Broman, RN) Monitor Mode: Internal Scalp Electrode (Angela Broman, RN) FHR Baseline Rate : 140 (Angela Broman, RN) Variability: Moderate 6-25 bpm (Angela Broman, RN) Accelerations: None (Angela Broman, RN) Decelerations: Early (Angela Broman, RN) Pitocin (milliunit): Pitocin Remains (milliunits) @ 18 (Angela Broman, RN) Datetime: 07/26/2016 15:03 NBP Sys/Kristin/Mean (mmHg): 96 (QS system process) : 53 (QS system process) : 71 (QS system process) Pulse: 70 (QS system process) LaborFlag: Antepartum (QS system process) Datetime: 07/26/2016 15:00 Monitor Mode: Internal; Palpation (Angela Broman, RN) Frequency (min): 2-3 (Angela Broman, RN) Quality: Moderate (Angela Broman, RN) Duration (sec): 60-90 (Angela Broman, RN) Duration Criteria: Less than Two 120 Second Contractions (Angela Broman, RN) Resting Tone (Palpate): Relaxed (Angela Broman, RN) Resting Tone IUP (mmHg): 15 (Angela Broman, RN) Intensity IUP (mmHg): 60 (Angela Broman, RN) Contraction Comments: MVU = 295 (Angela Broman, RN) Monitor Mode: Internal Scalp Electrode (Angela Broman, RN) FHR Baseline Rate : 135 (Angela Broman, RN) Variability: Moderate 6-25 bpm (Angela Broman, RN) Accelerations: 15X15 (Angela Broman, RN) Decelerations: Early (Angela Broman, RN) Pitocin (milliunit): Pitocin Remains (milliunits) @ 18 (Angela Broman, RN) Datetime: 07/26/2016 14:45 Monitor Mode: Internal (Angela Broman, RN) Frequency (min): 2-3 (Angela Broman, RN) Quality: Moderate (Angela Broman, RN) Duration (sec): 60-90 (Angela Broman, RN) Resting Tone (Palpate): Relaxed (Angela Broman, RN) Monitor Mode: Internal Scalp Electrode (Angela Broman, RN) FHR Baseline Rate : 135 (Angela Broman, RN) Variability: Moderate 6-25 bpm (Angela Broman, RN) Accelerations: 15X15 (Angela Broman, RN) Decelerations: None (Angela Broman, RN) Pitocin (milliunit): Pitocin Remains (milliunits) @ 18 (Angela Broman, RN) Datetime: 07/26/2016 14:43 Monitor Interventions for UA: IUPC Inserted (Angela Broman, RN) Monitor Interventions for FHR: FSE Applied (Angela Broman, RN) Dilatation (cm): 5.0 (Angela Broman, RN) Effacement (%): 80 (Angela Broman, RN) Station: -1 (Angela Broman, RN) Exam by: Samantha Quintanilla CNM (Angela Broman, RN) Datetime: 07/26/2016 14:33 NBP Sys/Kristin/Mean (mmHg): 101 (QS system process) : 52 (QS system process) : 73 (QS system process) Pulse: 66 (QS system process) Respirations: 16 (Angela Broman, RN) LaborFlag: Antepartum (QS system process) Datetime: 07/26/2016 14:30 Monitor Mode: External; Palpation (Angela Broman, RN) Frequency (min): 2-3 (Angela Broman, RN) Quality: Moderate (Angela Broman, RN) Duration (sec): 60-90 (Angela Broman, RN) Duration Criteria: Less than Two 120 Second Contractions (Angela Broman, RN) Resting Tone (Palpate): Relaxed (Angela Broman, RN) Monitor Mode: External US (Angela Broman, RN) FHR Baseline Rate : 135 (Angela Broman, RN) Variability: Moderate 6-25 bpm (Angela Broman, RN) Accelerations: None (Angela Broman, RN) Decelerations: None (Angela Broman, RN) Comments: RN at bedside adjusting US (Angela Broman, RN) Pitocin (milliunit): Pitocin Remains (milliunits) @ 18 (Angela Broman, RN) Datetime: 07/26/2016 14:29 Patient Position/Activity: Right Lateral; Peanut Ball (Angela Broman, RN) Datetime: 07/26/2016 14:18 NBP Sys/Kristin/Mean (mmHg): 117 (QS system process) : 57 (QS system process) : 80 (QS system process) Pulse: 65 (QS system process) LaborFlag: Antepartum (QS system process) Datetime: 07/26/2016 14:15 Monitor Mode: External; Palpation (Angela Broman, RN) Frequency (min): 2-3 (Angela Broman, RN) Quality: Moderate (Angela Broman, RN) Duration (sec): 60-90 (Angela Broman, RN) Duration Criteria: Less than Two 120 Second Contractions (Angela Broman, RN) Resting Tone (Palpate): Relaxed (Angela Broman, RN) Contraction Comments: RN at bedside adjusting Samantha DONALD CNM aware of trouble monitoring contractions, states she will be in to place IUPC (Angela Broman, RN) Monitor Mode: External US (Angela Broman, RN) FHR Baseline Rate : 135 (Angela Broman, RN) Variability: Moderate 6-25 bpm (Angela Broman, RN) Accelerations: 15X15 (Angela Broman, RN) Decelerations: None (Angela Broman, RN) Pitocin (milliunit): Pitocin Remains (milliunits) @ 18 (Angela Broman, RN) Datetime: 07/26/2016 14:02 NBP Sys/Kristin/Mean (mmHg): 106 (QS system process) : 56 (QS system process) : 77 (QS system process) Pulse: 66 (QS system process) LaborFlag: Antepartum (QS system process) Datetime: 07/26/2016 14:00 Monitor Mode: External (Angela Broman, RN) Quality: Moderate (Angela Broman, RN) Duration Criteria: Less than Two 120 Second Contractions (Angela Broman, RN) Resting Tone (Palpate): Relaxed (Angela Broman, RN) Contraction Comments: unable to determine contractions frequency at this time, RN at bedside adjusting TOCO (Angela Broman, RN) Monitor Mode: External US (Angela Broman, RN) FHR Baseline Rate : 135 (Angela Broman, RN) Variability: Moderate 6-25 bpm (Angela Broman, RN) Accelerations: None (Angela Broman, RN) Decelerations: None (Angela Broman, RN) Pitocin (milliunit): Pitocin Remains (milliunits) @ 18 (Angela Broman, RN) Datetime: 07/26/2016 13:56 Monitor Mode: External (Angela Broman, RN) Monitor Interventions for UA: [place] Adjusted (Angela Self RN) Contraction Comments: RN at bedside adjusting TOCO, RN reviewed strip (Angela Self RN) Datetime: 07/26/2016 13:48 NBP Sys/Kristin/Mean (mmHg): 121 (QS system process) : 60 (QS system process) : 86 (QS system process) Pulse: 75 (QS system process) Respirations: 16 (Angela Self RN) LaborFlag: Antepartum (QS system process) Datetime: 07/26/2016 13:45 Monitor Mode: External; Palpation (Angela Self RN) Monitor Interventions for UA: [place] Adjusted (Angela Self RN) Frequency (min): 2-4 (Angela Self RN) Quality: Moderate (Angela Self RN) Duration (sec): 60-90 (Angela Self RN) Duration Criteria: Less than Two 120 Second Contractions (Angela Self RN) Resting Tone (Palpate): Relaxed (Angela Self RN) Contraction Comments: RN at bedside adjusting TOCO (Angela Broman, RN) Monitor Mode: External US (Angela Broman, RN) Monitor Interventions for FHR: Ultrasound Adjusted (Angela Broman, RN) FHR Baseline Rate : 140 (Angela Broman, RN) Variability: Moderate 6-25 bpm (Angela Broman, RN) Accelerations: None (Angela Broman, RN) Decelerations: None (Angela Broman, RN) Comments: RN at bedside adjusting US (Angela Broman, RN) Pitocin (milliunit): Pitocin Remains (milliunits) @ 18 (Angela Broman, RN) Datetime: 07/26/2016 13:34 Patient Position/Activity: Left Lateral; Peanut Ball (Angela Broman, RN) Datetime: 07/26/2016 13:32 NBP Sys/Kristin/Mean (mmHg): 124 (QS system process) : 58 (QS system process) : 83 (QS system process) Pulse: 62 (QS system process) LaborFlag: Antepartum (QS system process) Datetime: 07/26/2016 13:30 Monitor Mode: External (Angela Broman, RN) Frequency (min): 2-3 (Angela Broman, RN) Quality: Moderate (Angela Broman, RN) Duration (sec): 60-90 (Angela Broman, RN) Duration Criteria: Less than Two 120 Second Contractions (Angela Broman, RN) Resting Tone (Palpate): Relaxed (Angela Broman, RN) Monitor Mode: External US (Angela Broman, RN) FHR Baseline Rate : 135 (Angela Broman, RN) Variability: Moderate 6-25 bpm (Angela Broman, RN) Accelerations: 15X15 (Angela Broman, RN) Decelerations: None (Angela Broman, RN) Pitocin (milliunit): Pitocin Remains (milliunits) @ 18 (Angela Broman, RN) Datetime: 07/26/2016 13:26 I/O Interventions: Bedpan Given (Angela Broman, RN) Datetime: 07/26/2016 13:23 Dilatation (cm): 5.0 (Angela Broman, RN) Effacement (%): 80 (Angela Broman, RN) Station: -1 (Angela Broman, RN) Exam by: H. Dwight CNM (Angela Broman, RN) Datetime: 07/26/2016 13:20 Temperature (F): 97.6 (Angela Broman, RN) Temperature (C): 36.4 (QS system process) LaborFlag: Antepartum (QS system process) Datetime: 07/26/2016 13:19 Pitocin (milliunit): Pitocin Increased to (milliunits) @ 18 (Angela Broman, RN) Patient Position/Activity: Right Tilt (Angela Broman, RN) Datetime: 07/26/2016 13:18 NBP Sys/Kristin/Mean (mmHg): 121 (QS system process) : 58 (QS system process) : 82 (QS system process) Pulse: 70 (QS system process) Respirations: 18 (Angela Broman, RN) LaborFlag: Antepartum (QS system process) Datetime: 07/26/2016 13:15 Monitor Mode: External (Angela Broman, RN) Frequency (min): 2-3 (Angela Broman, RN) Quality: Moderate (Angela Broman, RN) Duration (sec): 60-90 (Angela Broman, RN) Duration Criteria: Less than Two 120 Second Contractions (Angela Broman, RN) Resting Tone (Palpate): Relaxed (Angela Broman, RN) Contraction Comments: Rn at bedside adjusting TOCO (Angela Broman, RN) Monitor Mode: External US (Angela Broman, RN) FHR Baseline Rate : 135 (Angela Broman, RN) Variability: Moderate 6-25 bpm (Angela Broman, RN) Accelerations: 15X15 (Angela Broman, RN) Decelerations: None (Angela Broman, RN) Pitocin (milliunit): Pitocin Remains (milliunits) @ 16 (Angela Broman, RN) Datetime: 07/26/2016 13:01 NBP Sys/Kristin/Mean (mmHg): 101 (QS system process) : 51 (QS system process) : 73 (QS system process) Pulse: 67 (QS system process) LaborFlag: Antepartum (QS system process) Datetime: 07/26/2016 13:00 Monitor Mode: External; Palpation (BETTY Vera) Frequency (min): 2.5-3 (BETTY Vera) Quality: Mild/Moderate (BETTY Vera) Duration (sec): 60-80 (BETTY Vera) Duration Criteria: Less than Two 120 Second Contractions (BETTY Vera) Pattern: Normal: <= 5 Contractions in 10 Minutes (Renea Ruiz, RNC) Resting Tone (Palpate): Relaxed (Renea Ruiz, RNC) Monitor Mode: External US (Renea Ruiz, RNC) FHR Baseline Rate : 135 (Renea Ruiz, RNC) Variability: Moderate 6-25 bpm (Renea Ruiz, RNC) Accelerations: 15X15 (Renea Ruiz, RNC) Decelerations: None (Renea Ruiz, RNC) Datetime: 07/26/2016 12:54 Monitor Interventions for UA: [place] Adjusted (Renea Ruiz, RNC) Monitor Interventions for FHR: Ultrasound Adjusted (Renea Ruiz, RNC) Communication: RN at Bedside; RN Reviewed Strip (Renea Ruiz, RNC) Datetime: 07/26/2016 12:51 Monitor Interventions for UA: [place] Adjusted (Renea Ruiz, RNC) Monitor Interventions for FHR: Ultrasound Adjusted (Renea Ruiz, RNC) Communication: RN at Bedside; RN Reviewed Strip (Renea Ruiz, RNC) Datetime: 07/26/2016 12:46 NBP Sys/Kristin/Mean (mmHg): 96 (QS system process) : 55 (QS system process) : 74 (QS system process) Pulse: 68 (QS system process) LaborFlag: Antepartum (QS system process) Datetime: 07/26/2016 12:45 Monitor Mode: External; Palpation (BETTY Vera) Frequency (min): 1.5-2 (Renea Ruiz RNC) Quality: Mild/Moderate (Renea Ruiz RNC) Duration (sec): 60-80 (Renea Ruiz, RNC) Duration Criteria: Less than Two 120 Second Contractions (Renea Ruiz RNC) Pattern: Normal: <= 5 Contractions in 10 Minutes (Renea Ruiz RNC) Resting Tone (Palpate): Relaxed (Renea Ruiz RNC) Monitor Mode: External US (Renea Ruiz RNC) FHR Baseline Rate : 135 (Renea Ruiz RNC) Variability: Moderate 6-25 bpm (Renea Ruiz RNC) Accelerations: None (Renea Joseph, RNC) Decelerations: None (Renea Joseph, RNC) Datetime: 07/26/2016 12:41 Patient Position/Activity: Right Lateral; Peanut Ball (Angela Broman, RN) Datetime: 07/26/2016 12:32 NBP Sys/Kristin/Mean (mmHg): 117 (QS system process) : 57 (QS system process) : 78 (QS system process) Pulse: 71 (QS system process) Respirations: 18 (Angela Broman, RN) LaborFlag: Antepartum (QS system process) Datetime: 07/26/2016 12:30 Monitor Mode: External; Palpation (Renea Joseph, RNC) Frequency (min): 2-2.5 (Renea Joseph, RNC) Quality: Mild/Moderate (Renea Joseph, RNC) Duration (sec): 60-90 (Renea Joseph, RNC) Duration Criteria: Less than Two 120 Second Contractions (Renea Joseph, RNC) Pattern: Normal: <= 5 Contractions in 10 Minutes (Renea Joseph, RNC) Resting Tone (Palpate): Relaxed (Renea Joseph, RNC) Monitor Mode: External US (Renea Joseph, RNC) FHR Baseline Rate : 130 (Renea Joseph, RNC) Variability: Moderate 6-25 bpm (Reena Joseph, RNC) Accelerations: None (Renea Joseph, RNC) Decelerations: None (Renea Joseph, RNC) Datetime: 07/26/2016 12:17 NBP Sys/Kristin/Mean (mmHg): 122 (QS system process) : 53 (QS system process) : 76 (QS system process) Pulse: 69 (QS system process) LaborFlag: Antepartum (QS system process) Datetime: 07/26/2016 12:16 Patient Position/Activity: Tailors (Angela Broman, RN) Datetime: 07/26/2016 12:15 Monitor Mode: External (Angela Broman, RN) Frequency (min): 2-4 (Angela Broman, RN) Quality: Moderate (Angela Broman, RN) Duration (sec): 60-90 (Angela Broman, RN) Duration Criteria: Less than Two 120 Second Contractions (Angela Broman, RN) Pattern: Normal: <= 5 Contractions in 10 Minutes (Angela Broman, RN) Resting Tone (Palpate): Relaxed (Angela Broman, RN) Monitor Mode: External US (Angela Broman, RN) FHR Baseline Rate : 125 (Angela Broman, RN) Variability: Moderate 6-25 bpm (Angela Broman, RN) Accelerations: 15X15 (Angela Broman, RN) Decelerations: None (Angela Broman, RN) Pitocin (milliunit): Pitocin Remains (milliunits) @ 16 (Angela Broman, RN) Datetime: 07/26/2016 12:03 Patient Position/Activity: Right Tilt (Angela Broman, RN) I/O Interventions: Caicedo Cath Inserted (Angela Broman, RN) Datetime: 07/26/2016 12:01 NBP Sys/Kristin/Mean (mmHg): 117 (QS system process) : 58 (QS system process) : 83 (QS system process) Pulse: 78 (QS system process) LaborFlag: Antepartum (QS system process) Datetime: 07/26/2016 12:00 NBP Sys/Kristin/Mean (mmHg): 110 (QS system process) : 56 (QS system process) : 80 (QS system process) Pulse: 79 (QS system process) Respirations: 16 (Angela Broman, RN) Monitor Mode: External (Angela Broman, RN) Frequency (min): 2-3 (Angela Broman, RN) Quality: Moderate (Angela Broman, RN) Duration (sec): 60-90 (Angela Broman, RN) Duration Criteria: Less than Two 120 Second Contractions (Angela Broman, RN) Resting Tone (Palpate): Relaxed (Angela Broman, RN) Monitor Mode: External US (Angela Broman, RN) FHR Baseline Rate : 130 (Angela Broman, RN) Variability: Moderate 6-25 bpm (Angela Broman, RN) Accelerations: 15X15 (Angela Broman, RN) Decelerations: None (Angela Broman, RN) Pitocin (milliunit): Pitocin Increased to (milliunits) @ 16 (Angela Broman, RN) LaborFlag: Antepartum (QS system process) Datetime: 07/26/2016 11:59 NBP Sys/Kristin/Mean (mmHg): 112 (QS system process) : 55 (QS system process) : 79 (QS system process) Pulse: 86 (QS system process) LaborFlag: Antepartum (QS system process) Datetime: 07/26/2016 11:58 NBP Sys/Kristin/Mean (mmHg): 117 (QS system process) : 58 (QS system process) : 80 (QS system process) Pulse: 79 (QS system process) LaborFlag: Antepartum (QS system process) Datetime: 07/26/2016 11:57 NBP Sys/Kristin/Mean (mmHg): 110 (QS system process) : 58 (QS system process) : 80 (QS system process) Pulse: 81 (QS system process) LaborFlag: Antepartum (QS system process) Datetime: 07/26/2016 11:56 NBP Sys/Kristin/Mean (mmHg): 109 (QS system process) : 55 (QS system process) : 78 (QS system process) Pulse: 74 (QS system process) LaborFlag: Antepartum (QS system process) Datetime: 07/26/2016 11:55 NBP Sys/Kristin/Mean (mmHg): 98 (QS system process) : 54 (QS system process) : 74 (QS system process) Pulse: 82 (QS system process) LaborFlag: Antepartum (QS system process) Datetime: 07/26/2016 11:54 NBP Sys/Kristin/Mean (mmHg): 112 (QS system process) : 57 (QS system process) : 82 (QS system process) Pulse: 73 (QS system process) LaborFlag: Antepartum (QS system process) Datetime: 07/26/2016 11:53 NBP Sys/Kristin/Mean (mmHg): 116 (QS system process) : 56 (QS system process) : 80 (QS system process) Pulse: 93 (QS system process) LaborFlag: Antepartum (QS system process) Datetime: 07/26/2016 11:52 NBP Sys/Kristin/Mean (mmHg): 114 (QS system process) : 54 (QS system process) : 78 (QS system process) Pulse: 76 (QS system process) LaborFlag: Antepartum (QS system process) Datetime: 07/26/2016 11:51 NBP Sys/Kristin/Mean (mmHg): 116 (QS system process) : 55 (QS system process) : 79 (QS system process) Pulse: 87 (QS system process) LaborFlag: Antepartum (QS system process) Datetime: 07/26/2016 11:50 NBP Sys/Kristin/Mean (mmHg): 113 (QS system process) : 56 (QS system process) : 80 (QS system process) Pulse: 83 (QS system process) LaborFlag: Antepartum (QS system process) Datetime: 07/26/2016 11:49 NBP Sys/Kristin/Mean (mmHg): 114 (QS system process) : 58 (QS system process) : 82 (QS system process) Pulse: 93 (QS system process) LaborFlag: Antepartum (QS system process) Datetime: 07/26/2016 11:48 NBP Sys/Kristin/Mean (mmHg): 109 (QS system process) : 54 (QS system process) : 77 (QS system process) Pulse: 82 (QS system process) LaborFlag: Antepartum (QS system process) Datetime: 07/26/2016 11:47 NBP Sys/Kristin/Mean (mmHg): 112 (QS system process) : 53 (QS system process) : 77 (QS system process) Pulse: 85 (QS system process) Respirations: 20 (Angela Broman, RN) Epidural Procedure: Loading Dose (Angela Broman, RN) LaborFlag: Antepartum (QS system process) Datetime: 07/26/2016 11:46 NBP Sys/Kristin/Mean (mmHg): 110 (QS system process) : 56 (QS system process) : 80 (QS system process) Pulse: 79 (QS system process) LaborFlag: Antepartum (QS system process) Datetime: 07/26/2016 11:45 NBP Sys/Kristin/Mean (mmHg): 137 (QS system process) : 61 (QS system process) : 88 (QS system process) Pulse: 76 (QS system process) Monitor Mode: External (Angela Self RN) Frequency (min): 2-4 (Angela Self RN) Quality: Moderate (Angela Self RN) Duration (sec): 60-90 (Angela Self RN) Duration Criteria: Less than Two 120 Second Contractions (Angela Self RN) Resting Tone (Palpate): Relaxed (Angela Self RN) Monitor Mode: External US (Angela Self RN) Monitor Interventions for FHR: Ultrasound Adjusted (Angela Self RN) Comments: RN at bedside, monitor reading maternal HR, pt sitting up at side of bed for epidural placement (Angela Self RN) Pitocin (milliunit): Pitocin Remains (milliunits) @ 14 (Angela Self RN) LaborFlag: Antepartum (QS system process) Datetime: 07/26/2016 11:44 NBP Sys/Kristin/Mean (mmHg): 131 (QS system process) : 72 (QS system process) : 95 (QS system process) Pulse: 85 (QS system process) LaborFlag: Antepartum (QS system process) Datetime: 07/26/2016 11:43 NBP Sys/Kristin/Mean (mmHg): 132 (QS system process) : 72 (QS system process) : 95 (QS system process) Pulse: 80 (QS system process) LaborFlag: Antepartum (QS system process) Datetime: 07/26/2016 11:42 NBP Sys/Kristin/Mean (mmHg): 131 (QS system process) : 82 (QS system process) : 99 (QS system process) Pulse: 80 (QS system process) Respirations: 18 (Angela Broman, RN) Epidural Procedure: Cath Placed (Angela Broman, RN) LaborFlag: Antepartum (QS system process) Datetime: 07/26/2016 11:41 Pulse: 72 (QS system process) SpO2 (%): 100 (QS system process) Epidural Positioning: Sitting (Angela Broman, RN) Epidural Procedure: Test Dose (Angela Broman, RN) LaborFlag: Antepartum (QS system process) Datetime: 07/26/2016 11:36 Pulse: 73 (QS system process) SpO2 (%): 100 (QS system process) Procedure Verify: Correct Patient Identity; Correct Side and Site are Marked; Accurate Procedure Consent Form; Agreement on Procedure to be Done; Correct Patient Position; Relevant Images and Results are Properly Labeled and Displayed; Addressed Need to Administer Antibiotics or Fluids for Irrigation; Safety Precautions Based on Patient History or Medication Use (Angela Self RN) Anesthesia Plans: Epidural (Angela Self RN) Epidural Positioning: Sitting (Angela Self RN) LaborFlag: Antepartum (QS system process) Datetime: 07/26/2016 11:33 NBP Sys/Kristin/Mean (mmHg): 128 (QS system process) : 68 (QS system process) : 92 (QS system process) Pulse: 77 (QS system process) LaborFlag: Antepartum (QS system process) Datetime: 07/26/2016 11:32 Procedure Verify: Correct Patient Identity; Correct Side and Site are Marked; Accurate Procedure Consent Form; Agreement on Procedure to be Done; Correct Patient Position; Safety Precautions Based on Patient History or Medication Use (Angela Self, RN) Anesthesia Plans: Epidural (Angela Self RN) Epidural Positioning: Sitting (Angela Self RN) Anesthesia Comments: Dr. Young at bedside for epidural placement (Angela Self, RN) Datetime: 07/26/2016 11:31 Pulse: 74 (QS system process) SpO2 (%): 100 (QS system process) Patient Care Comments: pt sitting at side of bed for epidural placement (Angela Self RN) Procedure Verify: Correct Patient Identity; Accurate Procedure Consent Form; Correct Patient Position; Safety Precautions Based on Patient History or Medication Use (Angela Self, RN) Anesthesia Plans: Epidural (Angela Self, RN) Epidural Positioning: Sitting (Angela Self RN) LaborFlag: Antepartum (QS system process) Datetime: 07/26/2016 11:30 Monitor Mode: External (Angela Broman, RN) Frequency (min): 2-4 (Angela Broman, RN) Quality: Moderate (Angela Broman, RN) Duration (sec): 60-100 (Angela Broman, RN) Duration Criteria: Less than Two 120 Second Contractions (Angela Broman, RN) Resting Tone (Palpate): Relaxed (Angela Self, RN) Monitor Mode: External US (Angela Self, RN) Monitor Interventions for FHR: Ultrasound Adjusted (Angela Self, RN) Comments: monitor reading maternal HR, RN at bedside, pt having epidural placement sitting at side of bed (Angela Self RN) Pitocin (milliunit): Pitocin Remains (milliunits) @ 14 (Angela Broman, RN) Datetime: 07/26/2016 11:26 Pulse: 77 (QS system process) SpO2 (%): 100 (QS system process) LaborFlag: Antepartum (QS system process) Datetime: 07/26/2016 11:25 Communication Comments: Dr. Young called and notified pt would like epidural, instructed this nurse to sit pt up (Angela Broman, RN) Datetime: 07/26/2016 11:21 NBP Sys/Kristin/Mean (mmHg): 127 (QS system process) : 65 (QS system process) : 90 (QS system process) Pulse: 72 (QS system process) Pulse: 73 (QS system process) Respirations: 18 (Angela Broman, RN) SpO2 (%): 100 (QS system process) LaborFlag: Antepartum (QS system process) Datetime: 07/26/2016 11:15 Monitor Mode: External (Angela Broman, RN) Frequency (min): 2-3 (Angela Broman, RN) Quality: Moderate (Angela Broman, RN) Duration (sec): 60-90 (Angela Broman, RN) Resting Tone (Palpate): Relaxed (Angela Broman, RN) Monitor Mode: External US (Angela Broman, RN) FHR Baseline Rate : 140 (Angela Broman, RN) Variability: Moderate 6-25 bpm (Angela Broman, RN) Accelerations: None (Angela Broman, RN) Decelerations: None (Angela Broman, RN) Comments: RN at bedside with pt for epidural placement, pt sitting up at side of bed (Angela Self, RN) Pitocin (milliunit): Pitocin Remains (milliunits) @ 14 (Angela Broman, RN) Datetime: 07/26/2016 11:04 NBP Sys/Kristin/Mean (mmHg): 110 (QS system process) : 57 (QS system process) : 80 (QS system process) Pulse: 67 (QS system process) LaborFlag: Antepartum (QS system process) Datetime: 07/26/2016 11:00 Monitor Mode: External (Angela Broman, RN) Frequency (min): 2-3 (Angela Broman, RN) Quality: Moderate (Angela Broman, RN) Duration (sec): 60-90 (Angela Broman, RN) Duration Criteria: Less than Two 120 Second Contractions (Angela Broman, RN) Resting Tone (Palpate): Relaxed (Angela Broman, RN) Monitor Mode: External US (Angela Broman, RN) FHR Baseline Rate : 140 (Angela Broman, RN) Variability: Moderate 6-25 bpm (Angela Broman, RN) Accelerations: None (Angela Broman, RN) Decelerations: None (Angela Broman, RN) Pitocin (milliunit): Pitocin Remains (milliunits) @ 14 (Angela Broman, RN) Datetime: 07/26/2016 10:59 Patient Care Comments: pt requesting Epidural, LR bolus started at this time (Angela Broman, RN) Datetime: 07/26/2016 10:52 Dilatation (cm): 3.0 (Angela Broman, RN) Effacement (%): 70 (Angela Broman, RN) Station: -1 (Angela Self, RN) Exam by: Samantha Quintanilla CNM (Angela Self, RN) Membrane Status: Ruptured (Angela Self, RN) Membranes Rupture Method: Artificial (Angela Self, RN) Membrane Comments: Ruptured by Samantha Quintanilla CNM (Angela Self, RN) Datetime: 07/26/2016 10:50 Patient Position/Activity: Left Tilt (Angela Self, RN) Datetime: 07/26/2016 10:49 NBP Sys/Kristin/Mean (mmHg): 127 (QS system process) : 88 (QS system process) : 104 (QS system process) Pulse: 63 (QS system process) Respirations: 18 (Angelabrett Self, RN) LaborFlag: Antepartum (QS system process) Datetime: 07/26/2016 10:48 Temperature (F): 97.7 (Angela Broman, RN) Temperature (C): 36.5 (QS system process) LaborFlag: Antepartum (QS system process) Datetime: 07/26/2016 10:45 Monitor Mode: External (Angela Broman, RN) Frequency (min): 2-4 (Angela Broman, RN) Quality: Moderate (Angela Broman, RN) Duration Criteria: Less than Two 120 Second Contractions (Angela Broman, RN) Resting Tone (Palpate): Relaxed (Angela Broman, RN) Monitor Mode: External US (Angela Broman, RN) FHR Baseline Rate : 130 (Angela Broman, RN) Variability: Moderate 6-25 bpm (Angela Broman, RN) Accelerations: 15X15 (Angela Broman, RN) Decelerations: None (Angela Broman, RN) Pitocin (milliunit): Pitocin Remains (milliunits) @ 14 (Angela Broman, RN) Datetime: 07/26/2016 10:44 I/O Interventions: Up to BR (Angela Broman, RN) Datetime: 07/26/2016 10:35 NBP Sys/Kristin/Mean (mmHg): 127 (QS system process) : 58 (QS system process) : 84 (QS system process) Pulse: 72 (QS system process) Respirations: 18 (Angela Broman, RN) LaborFlag: Antepartum (QS system process) Datetime: 07/26/2016 10:30 Monitor Mode: External; Palpation (Angela Broman, RN) Monitor Interventions for UA: [place] Adjusted (Angela Broman, RN) Frequency (min): 2-3 (Angela Broman, RN) Quality: Moderate (Angela Broman, RN) Duration (sec): 60-90 (Angela Broman, RN) Duration Criteria: Less than Two 120 Second Contractions (Angela Broman, RN) Resting Tone (Palpate): Relaxed (Angela Broman, RN) Monitor Mode: External US (Angela Broman, RN) FHR Baseline Rate : 130 (Angela Broman, RN) Variability: Moderate 6-25 bpm (Angela Broman, RN) Accelerations: 15X15 (Angela Broman, RN) Decelerations: None (Angela Broman, RN) Pitocin (milliunit): Pitocin Increased to (milliunits) @ 14 (Angela Broman, RN) Datetime: 07/26/2016 10:19 NBP Sys/Kristin/Mean (mmHg): 124 (QS system process) : 57 (QS system process) : 82 (QS system process) Pulse: 71 (QS system process) LaborFlag: Antepartum (QS system process) Datetime: 07/26/2016 10:15 Monitor Mode: External; Palpation (Angela Broman, RN) Monitor Interventions for UA: [place] Adjusted (Angela Broman, RN) Frequency (min): 2-3 (Angela Broman, RN) Quality: Moderate (Angela Broman, RN) Duration (sec): 60-90 (Angela Broman, RN) Duration Criteria: Less than Two 120 Second Contractions (Angela Broman, RN) Resting Tone (Palpate): Relaxed (Angela Broman, RN) Monitor Mode: External US (Angela Broman, RN) FHR Baseline Rate : 135 (Angela Broman, RN) Variability: Moderate 6-25 bpm (Angela Broman, RN) Accelerations: 15X15 (Angela Broman, RN) Decelerations: None (Angela Broman, RN) Pitocin (milliunit): Pitocin Remains (milliunits) @ 12 (Angela Broman, RN) Datetime: 07/26/2016 10:13 Patient Position/Activity: Right Extreme (Angela Broman, RN) Datetime: 07/26/2016 10:04 NBP Sys/Kristin/Mean (mmHg): 127 (QS system process) : 59 (QS system process) : 84 (QS system process) Pulse: 67 (QS system process) Respirations: 16 (Angela Broman, RN) LaborFlag: Antepartum (QS system process) Datetime: 07/26/2016 10:00 Monitor Mode: External; Palpation (Angela Broman, RN) Monitor Interventions for UA: [place] Adjusted (Angela Broman, RN) Frequency (min): 2-3 (Angela Broman, RN) Quality: Moderate (Angela Broman, RN) Duration (sec): 60-100 (Angela Broman, RN) Duration Criteria: Less than Two 120 Second Contractions (Angela Broman, RN) Resting Tone (Palpate): Relaxed (Angela Broman, RN) Contraction Comments: RN at bedside adjusting toco and palpating contractions (Angela Broman, RN) Monitor Mode: External US (Angela Broman, RN) FHR Baseline Rate : 135 (Angela Broman, RN) Variability: Moderate 6-25 bpm (Angela Broman, RN) Accelerations: 15X15 (Angela Broman, RN) Decelerations: None (Angela Broman, RN) Pitocin (milliunit): Pitocin Remains (milliunits) @ 12 (Angela Broman, RN) Datetime: 07/26/2016 09:49 NBP Sys/Kristin/Mean (mmHg): 123 (QS system process) : 57 (QS system process) : 82 (QS system process) Pulse: 63 (QS system process) LaborFlag: Antepartum (QS system process) Datetime: 07/26/2016 09:45 NBP Sys/Kristin/Mean (mmHg): 125 (QS system process) : 62 (QS system process) : 86 (QS system process) Pulse: 65 (QS system process) Respirations: 18 (Angela Self RN) Monitor Mode: External (Angela Self RN) Monitor Interventions for UA: [place] Adjusted (Angela Self RN) Frequency (min): 3-5 (Angela Self RN) Quality: Moderate (Angela Self RN) Duration (sec): 90-120 (Angela Self RN) Duration Criteria: Less than Two 120 Second Contractions (Angela Self RN) Resting Tone (Palpate): Non Relaxed (Angela Self RN) Monitor Mode: External US (Angela Self RN) Monitor Interventions for FHR: Ultrasound Adjusted (Angela Self RN) FHR Baseline Rate : 140 (Angela Self RN) Variability: Moderate 6-25 bpm (Angela Self RN) Accelerations: 15X15 (Angela Self, RN) Decelerations: None (Angela Self RN) Pitocin (milliunit): Pitocin Increased to (milliunits) @ 12 (Angela Self RN) LaborFlag: Antepartum (QS system process) Datetime: 07/26/2016 09:30 Monitor Mode: External (Angela Broman, RN) Monitor Interventions for UA: [place] Adjusted (Angela Broman, RN) Frequency (min): 2-3 (Angela Broman, RN) Quality: Moderate (Angela Broman, RN) Duration Criteria: More than Two 120 Second or Greater Contractions (Angela Broman, RN) Resting Tone (Palpate): Relaxed (Angela Broman, RN) Contraction Comments: RN at bedside adjusting TOCO (Angela Broman, RN) Monitor Mode: External US (Angela Broman, RN) Monitor Interventions for FHR: Ultrasound Adjusted (Angela Broman, RN) FHR Baseline Rate : 135 (Angela Broman, RN) Variability: Moderate 6-25 bpm (Angela Broman, RN) Accelerations: 15X15 (Angela Broman, RN) Decelerations: None (Angela Broman, RN) Pitocin (milliunit): Pitocin Remains (milliunits) @ 10 (Angela Broman, RN) Datetime: 07/26/2016 09:18 I/O Interventions: Up to BR (Angela Broman, RN) Datetime: 07/26/2016 09:17 NBP Sys/Kristin/Mean (mmHg): 119 (QS system process) : 61 (QS system process) : 85 (QS system process) Pulse: 76 (QS system process) LaborFlag: Antepartum (QS system process) Datetime: 07/26/2016 09:15 Monitor Mode: External (Angela Broman, RN) Frequency (min): 2-4 (Angela Broman, RN) Quality: Moderate (Angela Broman, RN) Duration (sec): 60-110 (Angela Broman, RN) Duration Criteria: Less than Two 120 Second Contractions (Angela Broman, RN) Resting Tone (Palpate): Relaxed (Angela Broman, RN) Monitor Mode: External US (Angela Broman, RN) Monitor Interventions for FHR: Ultrasound Adjusted (Angela Broman, RN) FHR Baseline Rate : 135 (Angela Broman, RN) Variability: Moderate 6-25 bpm (Angela Broman, RN) Accelerations: None (Angela Broman, RN) Decelerations: None (Angela Broman, RN) Pitocin (milliunit): Pitocin Increased to (milliunits) @ 10 (Angela Broman, RN) Datetime: 07/26/2016 09:00 Monitor Mode: External (Angela Broman, RN) Monitor Interventions for UA: [place] Adjusted (Angela Broman, RN) Frequency (min): 2-3 (Angela Broman, RN) Quality: Moderate (Angela Broman, RN) Duration (sec): 90-120 (Angela Broman, RN) Duration Criteria: Less than Two 120 Second Contractions (Angela Broman, RN) Resting Tone (Palpate): Relaxed (Angela Broman, RN) Monitor Mode: External US (Angela Broman, RN) Monitor Interventions for FHR: Ultrasound Adjusted (Angela Broman, RN) FHR Baseline Rate : 140 (Angela Broman, RN) Variability: Moderate 6-25 bpm (Angela Broman, RN) Accelerations: None (Angela Broman, RN) Decelerations: None (Angela Broman, RN) Pitocin (milliunit): Pitocin Remains (milliunits) @ 8 (Angela Broman, RN) Datetime: 07/26/2016 08:49 NBP Sys/Kristin/Mean (mmHg): 123 (QS system process) : 66 (QS system process) : 89 (QS system process) Pulse: 78 (QS system process) Respirations: 16 (Angela Broman, RN) LaborFlag: Antepartum (QS system process) Datetime: 07/26/2016 08:45 Monitor Mode: External; Palpation (Angela Broman, RN) Monitor Interventions for UA: [place] Adjusted (Angela Broman, RN) Frequency (min): 2-3 (Angela Broman, RN) Quality: Mild/Moderate (Angela Broman, RN) Duration (sec): 90-120 (Angela Broman, RN) Duration Criteria: Less than Two 120 Second Contractions (Angela Broman, RN) Resting Tone (Palpate): Relaxed (Angela Broman, RN) Monitor Mode: External US (Angela Broman, RN) Monitor Interventions for FHR: Ultrasound Adjusted (Angela Broman, RN) FHR Baseline Rate : 140 (Angela Broman, RN) Variability: Moderate 6-25 bpm (Angela Broman, RN) Accelerations: 15X15 (Angela Broman, RN) Decelerations: None (Angela Broman, RN) Pitocin (milliunit): Pitocin Increased to (milliunits) @ (Annotations: 8) (Angela Broman, RN) Datetime: 07/26/2016 08:34 NBP Sys/Kristin/Mean (mmHg): 120 (QS system process) : 68 (QS system process) : 86 (QS system process) Pulse: 75 (QS system process) LaborFlag: Antepartum (QS system process) Datetime: 07/26/2016 08:30 Monitor Mode: External (Angela Broman, RN) Monitor Interventions for UA: [place] Adjusted (Angela Broman, RN) Frequency (min): irregular (Angela Broman, RN) Quality: Mild/Moderate (Angela Broman, RN) Duration Criteria: Less than Two 120 Second Contractions (Angela Broman, RN) Pattern: Normal: <= 5 Contractions in 10 Minutes (Angela Broman, RN) Resting Tone (Palpate): Relaxed (Angela Broman, RN) Monitor Mode: External US (Angela Broman, RN) FHR Baseline Rate : 135 (Angela Broman, RN) Variability: Moderate 6-25 bpm (Angela Broman, RN) Accelerations: 15X15 (Angela Broman, RN) Decelerations: None (Angela Broman, RN) Pitocin (milliunit): Pitocin Increased to (milliunits) @ (Annotations: 6) (Angela Broman, RN) Datetime: 07/26/2016 08:27 NBP Sys/Kristin/Mean (mmHg): 119 (QS system process) : 57 (QS system process) : 81 (QS system process) Pulse: 79 (QS system process) Respirations: 16 (Angela Broman, RN) LaborFlag: Antepartum (QS system process) Datetime: 07/26/2016 08:26 Patient Care Comments: Pt sitting in Rocking Chair (Angela Broman, RN) Datetime: 07/26/2016 08:19 I/O Interventions: Up to BR (Angela Broman, RN) Datetime: 07/26/2016 08:18 NBP Sys/Kristin/Mean (mmHg): 128 (QS system process) : 95 (QS system process) : 105 (QS system process) Pulse: 77 (QS system process) LaborFlag: Antepartum (QS system process) Datetime: 07/26/2016 08:15 Monitor Mode: External (Angela Broman, RN) Monitor Interventions for UA: [place] Adjusted (Angela Broman, RN) Frequency (min): none (Angela Broman, RN) Quality: Mild (Angela Broman, RN) Duration Criteria: Less than Two 120 Second Contractions (Angela Broman, RN) Resting Tone (Palpate): Relaxed (Angela Broman, RN) Monitor Mode: External US (Angela Self, RN) Monitor Interventions for FHR: Ultrasound Adjusted (Angelabrett Self, RN) FHR Baseline Rate : 130 (Angela Broman, RN) FHR Baseline Changes: No Baseline Change (Angela Broman, RN) Variability: Moderate 6-25 bpm (Angela Broman, RN) Accelerations: None (Angela Broman, RN) Decelerations: None (Angela Broman, RN) Comments: RN at bedside adjusting US (Angela Broman, RN) Pitocin (milliunit): Pitocin Remains (milliunits) @ 4 (Angela Broman, RN) Datetime: 07/26/2016 08:03 NBP Sys/Kristin/Mean (mmHg): 115 (QS system process) : 57 (QS system process) : 82 (QS system process) Pulse: 78 (QS system process) Respirations: 18 (Angela Broman, RN) LaborFlag: Antepartum (QS system process) Datetime: 07/26/2016 08:00 Monitor Mode: External (Angela Broman, RN) Monitor Interventions for UA: [place] Adjusted (Angela Broman, RN) Frequency (min): irregular (Angela Broman, RN) Quality: Mild (Angela Broman, RN) Duration Criteria: Less than Two 120 Second Contractions (Angela Broman, RN) Resting Tone (Palpate): Relaxed (Angela Broman, RN) Monitor Mode: External US (Angela Broman, RN) FHR Baseline Rate : 135 (Angela Broman, RN) Variability: Moderate 6-25 bpm (Angela Broman, RN) Accelerations: 15X15 (Angela Broman, RN) Decelerations: None (Angela Broman, RN) Pitocin (milliunit): Pitocin Increased to (milliunits) @ 4 (Angela Broman, RN) Patient Position/Activity: Left Extreme (Angela Broman, RN) Datetime: 07/26/2016 07:48 LaborFlag: Antepartum (QS system process) Datetime: 07/26/2016 07:47 Patient Position/Activity: Tailors (Angela Broman, RN) Datetime: 07/26/2016 07:18 LaborFlag: Antepartum (QS system process) Datetime: 07/26/2016 06:42 LaborFlag: Antepartum (QS system process) Datetime: 07/26/2016 06:37 LaborFlag: Antepartum (QS system process) Datetime: 07/26/2016 05:00 Stage of : Antepartum (Angela Self RN) Datetime: 06/25/2016 14:55 Membranes Ruptured Date/Time: 07/26/2016 10:52 (Angela Self RN) Amniotic Fluid Color: Clear (Angela Self RN) Amniotic Fluid Amount: Moderate (Angela Self RN) Amniotic Fluid Odor: Normal (Angela Self RN)
[2016-07-26] MEDS: FERROUS SULFATE 325 MG TABLET PO SCH (20:39)
[2016-07-26] MEDS: DOCUSATE SODIUM 100 MG CAPSULE PO SCH (20:39)
[2016-07-26] MEDS: FAMOTIDINE 20 MG TABLET PO SCH (22:54)
[2016-07-26] MEDS: IBUPROFEN 800 MG TABLET PO SCH (22:54)
[2016-07-27] MEDS: IBUPROFEN 800 MG TABLET PO SCH ×3 (06:15→21:25)
[2016-07-27 07:53] LABS: HEMATOCRIT 33.3 % (36.0-47.0); HEMOGLOBIN 11.2 g/dL (12.0-15.5); HGB HCT DIFFERENCE 0.3; MEAN CORPUSCULAR HEMOGLOBIN 31.3 pg (27.0-33.4); MEAN CORPUSCULAR HGB CONC 33.5 g/dL (32.0-36.0); MEAN CORPUSCULAR VOLUME 93 fl (80-97); RED BLOOD COUNT 3.57 10^6/uL (3.72-5.28); RED CELL DISTRIBUTION WIDTH 13.8 % (11.5-14.0); WHITE BLOOD COUNT 14.4 10^3/uL (4.0-10.5)
--- NOTE | 2016-07-27 09:51 | PDOC PROGRESS REPORT ---
Subjective-OB Subjective: Post Delivery Day:1 26 year old. Denies any needs at this time, states lochia is stable, voiding without difficulty, pain well controlled. Physical Exam (OB) Vital Signs: Temp Pulse Resp BP Pulse Ox 97.9 F 68 18 123/52 L 99 07/27/16 08:26 07/27/16 08:26 07/27/16 08:26 07/27/16 08:26 07/27/16 08:26 Intake & Output 07/26/16 07/27/16 07/28/16 06:59 06:59 06:59 Intake Total 300 Balance 300 Weight 79.3 kg - Lochia Lochia Amount: Scant < 10 ml Lochia Color: Rubra/Red - Abdomen Description: Tender, Soft Hernia Present: No Fundal Description: Firm, Midline Fundal Height: u/u - u/2 Objective-Diagnostic Laboratory: 07/27/16 07:23 07/27/16 07:23 WBC 14.4 H RBC 3.57 L Hgb 11.2 L Hct 33.3 L MCV 93 MCH 31.3 MCHC 33.5 RDW 13.8 Plt Count 271 Assessment and Plan(PN) - Assessment and Plan (1) Vaginal delivery Is this a current diagnosis for this admission?: YesPlan: routine care (2) Gestational diabetes mellitus (GDM) Qualifiers: Gestational diabetes mellitus control: diet-controlled Trimester: unspecified trimester Qualified Code(s): O24.410 - Gestational diabetes mellitus in , diet controlled Is this a current diagnosis for this admission?: YesPlan: screening for dm - Time Spent with Patient Time with patient: Less than 15 minutes Critical Time spent with patient: Less than 15 minutes Medications reviewed and adjusted accordingly: Yes - Disposition Anticipated Discharge: Home Within: within 24 hours
[2016-07-27] MEDS: PRENATAL VITAMIN W-O CA NO5/FE FUMARATE/FA CAPSULE PO SCH (10:54)
[2016-07-27] MEDS: FERROUS SULFATE 325 MG TABLET PO SCH ×2 (10:54→17:53)
[2016-07-27] MEDS: FAMOTIDINE 20 MG TABLET PO SCH ×2 (10:55→21:25)
[2016-07-27] MEDS: SENNOSIDES/DOCUSATE 8.6-50 MG 1 EACH TABLET PO SCH (10:55)
[2016-07-27] MEDS: DOCUSATE SODIUM 100 MG CAPSULE PO SCH ×2 (10:56→17:53)
[2016-07-28] MEDS: IBUPROFEN 800 MG TABLET PO SCH ×2 (06:04→14:31)
--- NOTE | 2016-07-28 08:01 | PDOC DISCHARGE SUMMARY ---
Final Diagnosis Discharge Date: 07/28/16 - Final Diagnosis (1) Vaginal delivery Is this a current diagnosis for this admission?: Yes (2) Gestational diabetes mellitus (GDM) Is this a current diagnosis for this admission?: Yes Discharge Data - Discharge Medication Home Medications: Ergocalciferol (Vitamin D2) [Vitamin D] 400 unit PO DAILY 06/25/16 Pnv with Ca,No.72/Iron/FA [Pnv Plus Multivit Tab] 1 each PO DAILY 06/25 Docusate Sodium [Colace 100 mg Capsule] 100 mg PO BID #60 capsule 07/28/16 Ibuprofen [Motrin 800 mg Tablet] 800 mg PO Q8 #90 tablet 07/28/16 Gestational Age: 40.1 Reason(s) for Admission: Induction of Labor, Gestional Diabetes Procedures: NST Intrapartum Procedure(s): Spontaneous Vaginal Delivery - [place] Data Baby 1 Female at 1 minute: 9 at 5 minutes: 10 Weight: 3285 kg Home with Mother: Yes Complications: No - Diagnosis Test Laboratory: Temp Pulse Resp BP Pulse Ox 98.1 F 90 18 130/68 H 99 07/27/16 20:30 07/27/16 20:30 07/27/16 20:30 07/27/16 20:30 07/27/16 20:30 07/26/16 07/26/16 07/27/16 06:31 06:44 07:23 RBC 3.65 L 3.57 L Hgb 11.6 L 11.2 L Hct 33.5 L 33.3 L Urine Opiates Screen NEGATIVE - Discharge information/Instructions Discharge Activity: Activity As Tolerated, Pelvic Rest, No tub bath Discharge Diet: Regular Disposition: HOME, SELF-CARE Follow up with: [facility] in: 4, Weeks
[2016-07-28 08:50] VITALS: BP 125/56
[2016-07-28] MEDS: SENNOSIDES/DOCUSATE 8.6-50 MG 1 EACH TABLET PO SCH (10:43)
[2016-07-28] MEDS: DOCUSATE SODIUM 100 MG CAPSULE PO SCH (10:43)
[2016-07-28] MEDS: FAMOTIDINE 20 MG TABLET PO SCH (10:43)
[2016-07-28] MEDS: FERROUS SULFATE 325 MG TABLET PO SCH (10:43)
[2016-07-28] MEDS: PRENATAL VITAMIN W-O CA NO5/FE FUMARATE/FA CAPSULE PO SCH (10:43)
--- NOTE | 2016-07-29 23:39 | Admission Physical ---
Datetime Report Generated by CPN: 07/29/2016 23:39 CURRENT ADMISSION Hx Assessment: The History has been Reviewed and is Current Chief Complaint: Scheduled Induction of Labor Indication for Induction: Maternal Diabetes Admit Plan: Admit to Unit; Initiate Labor Induction Protocol ALLERGIES Medication Allergies: No Medication Allergies: No Known Allergies (07/26/2016) Medication Allergies: No Known Allergies (06/25/2016) Medication Allergies: No Known Allergies (05/26/2014) Latex: No Latex Allergies Food Allergies: none Environmental Allergies: none OBSTETRICAL HISTORY EDC: 07/25/2016 00:00 : 2 Para: 1 Term: 1 : 0 SAB: 0 IAB: 0 Ectopic: 0 Livin Cesareans: 0 VBACs: 0 Multiple Births: 0 Gestational Diabetes: Yes Rh Sensitization: No Incompetent Cervix: No ABILIO: No Infertility: No ART Treatment: No Uterine Anomaly: No IUGR: No Hx Previous C/S: No Macrosomia: No Hx Loss/Stillborn: No PIH: No Hx : No Placenta Previa/Abruption: No Depression/PP Depression: No PTL/PROM: No Post Hemorrhage: No Current Procedures: Ultrasound; NST Obstetrical History Comments: G1: 2012 female 6 lbs 15 ounces G2: Current SEE RECORDS Alcohol: No Marijuana : No Cocaine: No Other Illicit Drugs: No Cigarettes: Never Smoker. 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 Heart Disease: No Hosp/Surgery: Yes Autoimmune Disorder: No Anesthetic Complications: No Kidney Disease: No Abnormal Pap Smear: No Neuro/Epilepsy: No Psychiatric Disorders: No Other Medical Diseases: No Hepatitis/Liver Disease: No Significant Family History: No Varicosities/Phlebitis: No Trauma/Violence : No Thyroid Dysfunction: No Medical History Comments: childbirth, wisdom teeth INFECTIOUS HISTORY Gonorrhea: No Genital Herpes: No Chlamydia: No Tuberculosis: No Syphilis: No Hepatitis: No HIV/AIDS Exposure: No Rash or Viral Illness: No HPV: No PHYSICAL EXAM General: Normal HEENT: Normal Neurologic: Normal Thyroid: Deferred Heart: Normal Lungs: Normal Breast: Normal Back: Normal Abdomen: Normal Genitourinary Exam: Normal Extremities: Normal DTRs: Normal Pelvic Type: Adequate Physical Exam Comments: pelvis proven 6 lbs 15 oz Vital Signs: Reviewed VAGINAL EXAM Dilatation: 7 Dilatation: 1 Effacement: 80 Station: 0 Contraction Comments: 2-3 Contraction Comments: irregular MEMBRANES Membranes: Ruptured Membranes: Intact Amniotic Fluid Color: Clear FETUS A EGA: 40.1 Monitoring: External US FHR- Baseline: 135 Variability: Moderate 6-25bpm Accelerations: 15X15 Decelerations: None FHR Category: Category I Estimated Weight (gm): 3400 Presentation: Vertex Admit Comment: Admit to L _ D IOL, GDMA1, well controlled known rh negative gbs neg Pitocin AROM, pitocin may have epidural prn See record for complete hx. PLANS FOR LABOR AND DELIVERY Labor and Delivery: None Pain Management: Epidural Feeding Preference: Breast Benefit of Breast Feed Discussed: Yes Circumcision: N/A INFORMED CONSENT Informed Consent Obtained: Vaginal Delivery Assignment: Ramya Lott MD Signature: with User ID: [email or web address] : with User ID: [email or web address]
== END 2016-07-28 17:28 | disposition home or self-care (01) | DRG 775 ==
LOC: LR 06:22 → 2S 20:20
PROVIDERS: ADMIT Obstetrics & Gynecology; ATTEND Obstetrics & Gynecology
PROC: 10E0XZZ Delivery of Products of Conception, External Approach (ICD-10-PCS; principal; 2016-07-26)
PROC: 4A1HXCZ Monitoring of Products of Conception, Cardiac Rate, External Approach (ICD-10-PCS; 2016-07-26)
PROC: 3E033VJ Introduction of Other Hormone into Peripheral Vein, Percutaneous Approach (ICD-10-PCS; 2016-07-26)
PROC: 10907ZC Drainage of Amniotic Fluid, Therapeutic from Products of Conception, Via Natural or Artificial Opening (ICD-10-PCS; 2016-07-26)
DX: O24.420 Gestational diabetes mellitus in childbirth, diet controlled (principal); Z3A.40 40 weeks gestation of pregnancy; Z37.0 Single live birth
CPT/HCPCS: 36415; 80307; 81005; 82962; 85025; 85027; 86592; 86850; 86870; 86900; 86901; 90715; J2590; J3490

== ENCOUNTER 2016-12-13 05:30 | Day surgery (SDC) | payer OTHER ==
[2016-12-07 12:39] LABS: HEMATOCRIT 39.8 % (36.0-47.0); HEMOGLOBIN 13.5 g/dL (12.0-15.5); HGB HCT DIFFERENCE 0.7; MEAN CORPUSCULAR HEMOGLOBIN 31.5 pg (27.0-33.4); MEAN CORPUSCULAR HGB CONC 33.8 g/dL (32.0-36.0); MEAN CORPUSCULAR VOLUME 93 fl (80-97); RED BLOOD COUNT 4.27 10^6/uL (3.72-5.28); RED CELL DISTRIBUTION WIDTH 13.1 % (11.5-14.0); WHITE BLOOD COUNT 9.7 10^3/uL (4.0-10.5)
[2016-12-07 12:48] LABS: APPEARANCE,URINE SLIGHTLY-CLOUDY; BILIRUBIN,URINE NEGATIVE (NEGATIVE); GLUCOSE, URINE NEGATIVE (NEGATIVE); KETONES,URINE NEGATIVE (NEGATIVE); LEUKOCYTE ESTERASE,URINE SMALL (NEGATIVE); NITRITE,URINE NEGATIVE (NEGATIVE); PROTEIN,URINE NEGATIVE (NEGATIVE)
[~2016-12-13 05:30] MED LIST: LACTATED RINGERS 1000 ML IV PRN
[2016-12-13] MEDS ORDERED: FENTANYL CITRATE INJ/PF 100 MCG/2 ML AMPUL ONE ×3 (06:54→08:56)
[2016-12-13] MEDS ORDERED: MIDAZOLAM 2 MG/2 ML INJ ONE (06:54)
[2016-12-13] MEDS ORDERED: PROPOFOL INJ 200 MG/20 ML VIAL IV ONE (06:55)
[2016-12-13] MEDS ORDERED: MEPERIDINE HCL/PF INJ 25 MG/1 ML DISP.SYRIN IV PRN (08:14)
[2016-12-13] MEDS ORDERED: MORPHINE SULFATE 10 MG/ML INJ IV PRN (08:14)
[2016-12-13] MEDS ORDERED: FENTANYL CITRATE INJ/PF 100 MCG/2 ML AMPUL IV PRN ×3 (08:14)
[2016-12-13] MEDS ORDERED: DIPHENHYDRAMINE HCL 50 MG/ML VIAL IV PRN (08:14)
[2016-12-13] MEDS ORDERED: PROMETHAZINE HCL INJ 25 MG/1 ML VIAL IV PRN (08:14)
--- NOTE | 2016-12-13 08:51 | Operative Report ---
Operative Report DATE OF SURGERY: 12/13/16 PREOPERATIVE DIAGNOSIS: Desires tubal ligation POSTOPERATIVE DIAGNOSIS: Same OPERATION: Laparoscopic Filshie clip application bilateral SURGEON: EDDIE AKBAR ANESTHESIA: GA TISSUE REMOVED OR ALTERED: Fallopian tubes COMPLICATIONS: None ESTIMATED BLOOD LOSS: None INTRAOPERATIVE FINDINGS: Normal uterus tubes and ovaries PROCEDURE: The patient was taken back to the OR and placed in supine position. General anesthesia was induced. She is placed in the dorsolithotomy position using Ede stirrups. Her abdomen perineum and vagina were prepared and draped in sterile fashion. A sponge stick was placed in the vagina for manipulation of the uterus. An incision was made at the umbilicus. Natural umbilical defect was identified and dilated with Esperanza clamp allowing a blunt port to be placed. Laparoscopy confirmed appropriate placement. The abdomen was insufflated with CO2 gas. Each fallopian tube was identified and followed out to its fimbriated end and a Filshie clip clip placed across the mid isthmic portion. Photos were taken there were no complications. At the end of the case the scope was withdrawn the gas was allowed to escape. The fascia was closed at the umbilicus with a 2-0 Vicryl suture. The skin was closed with a 4-0 undyed Vicryl suture. Patient was extubated and taken to recovery room in stable condition. The sponge stick was removed from the vagina prior to extubating the patient. All counts were correct.
[2016-12-13] MEDS ORDERED: ACETAMINOPHEN 100 ML IV ONE (09:06)
[2016-12-13] MEDS ORDERED: KETOROLAC TROMETHAMINE INJ/PF 30 MG/1 ML SDV ONE (09:06)
[2016-12-13] MEDS ORDERED: KETOROLAC TROMETHAMINE INJ/PF 30 MG/1 ML SDV IV PRN (09:29)
[2016-12-13] MEDS ORDERED: IBUPROFEN 800 MG TABLET PO PRN (09:30)
[2016-12-13] MEDS ORDERED: OXYCODONE-ACETAMINOPHEN 5-325 MG TABLET PO PRN ×2 (09:30→09:31)
[2016-12-13 10:40] VITALS: BP 119/64
[2016-12-13] MEDS ORDERED: GLYCOPYRROLATE INJ 0.4 MG/2 ML VIAL ONE (14:59)
[2016-12-13] MEDS ORDERED: SUCCINYLCHOLINE CHLORIDE INJ 200 MG/10 ML VIAL ONE (14:59)
[2016-12-13] MEDS ORDERED: NEOSTIGMINE METHYLSULFATE 10 MG/10 ML VIAL ONE (14:59)
[2016-12-13] MEDS ORDERED: LIDOCAINE 2% INJ-PF (20 MG/ML) 10 ML AMPUL ONE (14:59)
[2016-12-13] MEDS ORDERED: DEXAMETHASONE SOD PHOSPHATE INJ 4 MG/1 ML VIAL ONE (14:59)
[2016-12-13] MEDS ORDERED: ONDANSETRON HCL INJ/PF 4 MG/2 ML SDV ONE (14:59)
== END 2016-12-13 10:35 | disposition home or self-care (01) ==
LOC: OROUT 05:30
PROVIDERS: ATTEND Obstetrics & Gynecology
PROC: 0UL74CZ Occlusion of Bilateral Fallopian Tubes with Extraluminal Device, Percutaneous Endoscopic Approach (ICD-10-PCS; principal; 2016-12-13 07:30)
DX: Z30.2 Encounter for sterilization (principal); F53 Mental and behavioral disorders associated with the puerperium, not elsewhere classified; Z79.899 Other long term (current) drug therapy
CPT/HCPCS: 36415; 85027; 81005; 81025; 58671; J2250; J1100; J3010; J1885; J0330; J2405; J2704; J3490; J0131; 851